=== PATIENT | female | born 1940 | race Caucasian/White ===

== ENCOUNTER → 2016-05-08 | Outpatient (CLI) | payer OTHER ==
[~2016-05-08] MED LIST: AMLO-114 PO; ATV5 PO; CYAN100020; DLCSR240 PO; DTR5 PO; FEBU40TA PO; FURO40TA3 PO; METO1TAB69 PO; NYSTCRE32 TOP; NYSTPOW2 TOP; OXYC-292 PO; OXYC1TAB3 PO; POTA20TA16 PO; TELM80TA PO; TRAM-10 PO; XRL10 PO
[2016-05-08 13:33] LABS: AST/SGOT 9 U/L (15-37); BLOOD UREA NITROGEN 15 mg/dl (7-18); CARBON DIOXIDE 29 mmol/L (21-32); CHLORIDE 105 mmol/L (98-107); GLUCOSE 106 mg/dl (70-99); POTASSIUM 3.5 mmol/L (3.5-5.1); SODIUM 143 mmol/L (136-145)
[2016-05-08 13:38] LABS: ALT/SGPT 12 U/L (12-78); CHOLESTEROL 196 mg/dl (0-200); CHOLESTEROL/HDL RATIO 3.2; HDL CHOLESTEROL 62 mg/dl; LDL CHOLESTEROL CALCULATED 104 mg/dl; TRIGLYCERIDES 151 mg/dl (0-150); VERY LOW DENSITY LIPOPROT CALC 30 mg/dl
== END | disposition home or self-care (01) ==
LOC: C.LABMFLN 09:08
PROVIDERS: ATTEND Family Medicine
DX: I10 Essential (primary) hypertension (principal); M1A.9XX1 Chronic gout, unspecified, with tophus (tophi); M10.9 Gout, unspecified; E78.5 Hyperlipidemia, unspecified

== ENCOUNTER → 2016-07-11 | Outpatient (CLI) | payer OTHER ==
[~2016-07-11] MED LIST changes: +METO100T44 PO; -METO1TAB69 PO
[2016-07-11 18:33] LABS: PARTIAL THROMBOPLASTIN RATIO 1.2; PROTHROMBIN TIME (PATIENT) 10.9 SECONDS (9.0-12.0)
[2016-07-11 18:38] LABS: BASO % 0.3 %; BASO ABS # 0.02 K/uL (0-0.2); COMPLETE YES; EOS % 2.3 %; IG% 0.3 %; LYMPH % 20.7 %; LYMPH ABS # 1.44 K/uL (1.2-3.4); MEAN CELL VOLUME 90.7 fL (80-100); MEAN CORPUSCULAR HEMOGLOBIN 28.5 pg (25-34); MEAN CORPUSCULAR HGB CONC 31.4 g/dl (32-36); MEAN PLATELET VOLUME 9.1 fL (7.4-10.4); MONO % 10.8 %; NEUT % 65.6 %; PLATELET COUNT 285 K/uL (130-400); RED BLOOD COUNT 4.85 M/uL (4.2-5.4); WHITE BLOOD COUNT 6.97 K/uL (4.8-10.8)
[2016-07-11 18:48] LABS: CALCIUM 9.1 mg/dl (8.5-10.1)
[2016-07-11 18:49] LABS: ALT/SGPT 15 U/L (12-78); BLOOD UREA NITROGEN 17 mg/dl (7-18); BUN/CREATININE RATIO 20.8 (10-20); CARBON DIOXIDE 30 mmol/L (21-32); CHLORIDE 107 mmol/L (98-107); CREATININE 0.83 mg/dl (0.60-1.20); GLUCOSE 100 mg/dl (70-99); POTASSIUM 3.7 mmol/L (3.5-5.1); SODIUM 145 mmol/L (136-145)
[2016-07-11 18:59] LABS: ALB/GLOB RATIO 0.9 (0.9-2); ALKALINE PHOSPHATASE 97 U/L (45-117); AST/SGOT 11 U/L (15-37)
== END | disposition home or self-care (01) ==
LOC: C.LABMFLN 16:47
PROVIDERS: ATTEND Family Medicine
DX: C18.9 Malignant neoplasm of colon, unspecified (principal); R53.83 Other fatigue

== ENCOUNTER 2016-08-01 09:27 | Inpatient (IN) | payer OTHER ==
[2016-07-24 12:23] VITALS: BMI 52.0
--- NOTE | 2016-07-24 12:56 | PAT Medication Instructions ---
Service Date July 24, 2016. Current Home Medication List Amlodipine (Norvasc), 10 MG PO QAM Febuxostat (Uloric), 1 TAB PO QAM Furosemide (Lasix), 40 MG PO BID Lorazepam (Ativan *), 0.25-0.5 MG PO HS Metoprolol Succ (Toprol Xl) (Toprol-Xl ), 100 MG PO QAM Nystatin (Mycostatin), 1 APPLN TOP DAILY Oxybutynin Chloride (Ditropan *), 5 MG PO HS Potassium Ext Rel (Klor-Con), 20 MEQ PO BID Telmisartan (Micardis), 80 MG PO QAM Tramadol (Ultram), 50 MG PO Q8H PRN for Pain Medication Instructions For Your Scheduled Surgery - Hold the following medications 24 hours prior to surgery: Nystatin (Mycostatin), 1 APPLN TOP DAILY - Hold the following medications the morning of surgery: Furosemide (Lasix), 40 MG PO BID Telmisartan (Micardis), 80 MG PO QAM Potassium Ext Rel (Klor-Con), 20 MEQ PO BID Febuxostat (Uloric), 1 TAB PO QAM - Take the following medications the morning of surgery with a sip of water OTHERWISE NOTHING TO EAT OR DRINK AFTER MIDNIGHT: Tramadol (Ultram), 50 MG PO Q8H PRN for Pain (may take if needed up to 4 hours prior to surgery) Amlodipine (Norvasc), 10 MG PO QAM Metoprolol Succ (Toprol Xl) (Toprol-Xl ), 100 MG PO QAM - Take the following medications as scheduled the night before surgery: Tramadol (Ultram), 50 MG PO Q8H PRN for Pain Furosemide (Lasix), 40 MG PO BID Oxybutynin Chloride (Ditropan *), 5 MG PO HS Lorazepam (Ativan *), 0.25-0.5 MG PO HS Potassium Ext Rel (Klor-Con), 20 MEQ PO BID If you have any questions please call us at [phone] or [phone] or [phone]
[~2016-08-01] VITALS: Ht 149.9 cm; Wt 117.1 kg
[2016-08-01] VITALS (7 sets, daily range): BP systolic 108–160; BP diastolic 62–74; PULSE 67–91; TEMP 36.4–37; O2SAT 96–98; Ht 149.9 cm; Wt 117.1 kg
[~2016-08-01 09:27] MED LIST changes: -CYAN100020; -DLCSR240 PO; +HEPARIN SOD 5000 UNIT/0.5 ML CARP SQ SCH; +LACTATED RINGER'S 1000ML 1,000 ML IV SCH; -NYSTCRE32 TOP; -OXYC-292 PO; -OXYC1TAB3 PO; -XRL10 PO
[2016-08-01] MEDS ORDERED: EpHEDrine SULFATE INJ 50 MG/ML AMP IV PRN (11:30)
[2016-08-01] MEDS ORDERED: HYDROmorphone INJ 1 MG/ML SYR IV PRN (11:30)
[2016-08-01] MEDS ORDERED: ONDANSETRON INJ 2 MG/ML 2 ML VIAL IV PRN (11:30)
[2016-08-01] MEDS ORDERED: PROMETHAZINE HCL INJ 6.25 MG in SODIUM CHLORIDE 0.9% 50ML 50 ML IV PRN (11:30)
[2016-08-01] MEDS ORDERED: ATROPINE SULFATE 0.1 MG/ML 5ML SYR IV PRN (11:30)
[2016-08-01] MEDS ORDERED: MIDAZOLAM HCL 1 MG/ML 2ML VIAL ONE (11:43)
[2016-08-01] MEDS ORDERED: FENTANYL CITRATE INJ 50 MCG/1 ML 2 ML VIAL ONE ×3 (11:43→13:06)
--- NOTE | 2016-08-01 11:44 | History & Physical Bridge Note ---
H&P Re-Evaluation Bridge Note: I have examined the patient, reviewed the History & Physical and in the interval since the performance of the History & Physical I have noted the following changes of clinical significance: No changes notedfamily at bedside, admit order written
[2016-08-01] MEDS ORDERED: BUPIVACAINE 0.5 % 5 MG/1 ML MPF 30ML VIAL ONE (11:55)
[2016-08-01] MEDS ORDERED: CEFAZOLIN IV 2,000 MG/60 ML D5W IV ONE (11:59)
[2016-08-01] MEDS ORDERED: HYDROmorphone INJ 2 MG/ML SYR/VIAL ONE (12:34)
[2016-08-01] MEDS ORDERED: NEOSTIGMINE METHYLSULFATE 5 MG/5 ML SYR ONE (13:11)
[2016-08-01] MEDS ORDERED: GLYCOPYRROLATE INJ 0.2 MG/ML VIAL ONE (13:11)
[2016-08-01] MEDS ORDERED: EpHEDrine SULFATE INJ 50 MG/ML AMP ONE (13:11)
[2016-08-01] MEDS ORDERED: LIDOCAINE HCL 2% 2 ML VIAL (20MG/ML) ONE (13:11)
[2016-08-01] MEDS ORDERED: PROPOFOL IV EMULSION 10 MG/ML 20 ML VIAL IV ONE (13:11)
[2016-08-01] MEDS ORDERED: DEXAMETHASONE SOD INJ 4 MG/ML VIAL ONE (13:11)
[2016-08-01] MEDS ORDERED: ROCURONIUM BROMID 50MG/5ML SYR ONE (13:11)
[2016-08-01] MEDS ORDERED: CEFOXITIN SOD 1 GM VIAL ONE (13:11)
--- NOTE | 2016-08-01 14:49 | [facility] Post Operative Brief Note ---
Immediate Operative Summary Operative Date August 01, 2016. Pre-Operative Diagnosis adeno ca sigmoid colon Post-Operative Diagnosis same and incrcerated incisional hernias Procedure(s) Performed laparoscopic assisted sigmoid colon resection repair incarcaerated incisional hernia Surgeon Dr. Shane Márquez In Flight Technician Surgeon(s) Rey Hickman PA-C Estimated Blood Loss 150 Findings multiple fenestrated incisional hernia and sigmoid lesion Specimens sigmoid colon and hernia sac Drains 19 ana per stab pelvis and 1/4 inch maegan sub cut
[2016-08-01] MEDS ORDERED: ACETAMINOPHEN IV 100 ML IV PRN (15:00)
[2016-08-01] MEDS ORDERED: LORAZEPAM 2 MG/ML 1 ML VIAL IV PRN (15:00)
[2016-08-01] MEDS ORDERED: NALOXONE HCL 0.4 MG/1 ML VIAL/CARP IV PRN (15:00)
[2016-08-01] MEDS ORDERED: MoRPHine SULFATE 1 MG/ML 50 ML PCA CASS ONE (15:26)
[2016-08-01] MEDS: FENTANYL CITRATE INJ 50 MCG/1 ML 2 ML VIAL IV PRN ×3 (15:45→16:08)
--- NOTE | 2016-08-01 16:17 | Anesthesiology Progress Note ---
Anesthesia Post Op Note Date & Time August 01, 2016 at 16:17 Vital Signs Pain Intensity: 8.0 Vital Signs Past 12 Hours Date Time Temp Pulse Resp B/P Pulse Ox O2 Delivery O2 Flow Rate FiO2 08/01/16 16:00 73 14 118/51 95 Mask 10 08/01/16 15:50 73 18 112/58 90 Mask 10 08/01/16 15:40 75 20 108/53 95 Mask 10 08/01/16 15:30 77 13 114/52 93 Mask 10 08/01/16 15:20 78 22 114/55 90 Mask 10 08/01/16 15:10 80 20 103/54 91 Mask 08/01/16 15:01 36.6 83 16 106/51 92 Mask 08/01/16 09:44 36.7 67 20 137/71 97 Room Air Notes Mental Status: alert / awake / arousable, participated in evaluation Pt Amnestic to Procedure: Yes Nausea / Vomiting: adequately controlled Pain: adequately controlled Airway Patency, RR, SpO2: stable & adequate BP & HR: stable & adequate Hydration State: stable & adequate Anesthetic Complications: no major complications apparent
[2016-08-01] MEDS: MoRPHine SULFATE 1 MG/ML 50 ML PCA CASS IV PRN ×2 (16:57→23:59)
[2016-08-01] MEDS: SODIUM CHLORIDE 0.9% 1000ML 1,000 ML IV SCH (17:16)
[2016-08-01] MEDS: LACTATED RINGER'S 1000ML 1,000 ML IV SCH ×2 (17:17→21:11)
--- NOTE | 2016-08-01 17:28 | OPERATIVE REPORT ---
DATE OF OPERATION: 08/01/2016 SURGEON: Dr. Márquez. BEVEL OPERATOR: Edgar Hickman PA-C. PREOPERATIVE DIAGNOSIS: Sigmoid cancer, adenocarcinoma, biopsy proven tattoo. POSTOPERATIVE DIAGNOSES: Same with multiple incarcerated incisional hernia. PROCEDURE: Laparoscopic-assisted sigmoid colon resection and repair of multiple incisional hernias. SUMMARY: The patient was brought into the operating room theater. De La Cruz catheter was inserted. The abdomen was prepped with Betadine solution and properly draped. Prior to prepping, we looked at the umbilical area. The patient had an incision above the umbilicus linearly and we found still a remnant of a staple from her previous surgery years ago. We at this point then were able to remove that and prepped the abdomen as stated. We made an incision above the incision in the supraumbilical area, sufficient enough to enter the abdomen with a Veress needle, followed by CO2. Point of entry inspected and no injury identified. As we placed a 5 mm trocar, then we were able to visualize the pelvic area where we really could not see much of any significance, there were no adhesions. The patient had a significant amount of fatty tissue. We placed her in Trendelenburg position and then placed a 5 mm right lower quadrant and a 5 mm left flank port and were able to maneuver what we identified as a redundant sigmoid colon and then we could see a tattoo down in the pelvis. This was fairly immobile that we were able to actually bring the tattoo almost up to the pelvic area very easily. At this point, I felt we had enough mobility to probably not need to mobilize the splenic flexure. I elected at this point to go ahead and proceed with converting to an open procedure. There were some adhesions to her left flank from a previous surgery, which we were able to remove and free up. I made an incision above and below the umbilicus, deepened through subcutaneous tissue when we were met with multiple incarcerated hernias in the area. We were able then to free this up, basically uniting all the fenestration in 1 big defect which involved the upper aspect and periumbilical area. We then took our dissection and opened up the linea alba down toward the symphysis pubis. We did not make a real big incision and I think the patient's body habitus was more of a large panniculus going down to her knees but her body cavity was fairly small. At this point, the Bookwalter was placed after we had mobilized and placed her in Trendelenburg position and put some packing, identified the sigmoid colon and freed it up down to the peritoneal reflection, again documenting that we would be able to resect this without much difficulty. We then divided the white line of Toldt just at the takeoff on peritoneal reflection. Taking it up, we identified the ureter. We actually had it out of the way, divided the sigmoid colon to an area that I thought was well away from the tumor with a CHRISTIAN stapler. Then, we took this down all the way to almost the root of the mesentery as far as the inferior mesenteric artery. We then dissected down anterior to Waldeyer's fascia and went down to below the tattooed area for approximately 10 cm or more. Distally, we placed a clamp and another clamp proximally and we resected the distal sigmoid rectal area. The mesentery to that area was then ligated with 2-0 silk. Once this had been performed, we then opened the specimen on the operating room table and grossly we were well away from this polypoid lesion in both ends. At this point, I went back to the operating room theatre and I felt we still had some redundant sigmoid colon that I could probably take more of this mesentery which we did. We took another piece of sigmoid colon and descending colon together with another application of the CHRISTIAN stapler. The patient did have some diverticular disease in the area. There were really a few areas that we were able to just use the CHRISTIAN stapler securely. Once we secured this, we marked the most proximal end of the second resection with a silk suture and the distal end had long sutures. The staple line was oversewn with 3-0 interrupted silk suture. We then brought the 2 ends together with 3-0 silk outer layer, 3-0 chromic inner layer. The anastomosis appeared satisfactory. There was no tension. We established flow and irrigated the area. Placed a 19 Erik drain through a stab wound in left lower quadrant that we used for 5 mm trocar and placed it down the cul-de-sac, attached to skin edges with 2-0 silk suture. We at this point then needed to enlarge this incision more cephalad because it went too close to multiply fenestrated hernias we had dissected out lateral to the rectus on both sides, freeing up the subcutaneous tissue from these areas sufficiently enough that we would be able to close it which we did with interrupted #1 PDS [id number] and also placing retention sutures buried with #2 Vicryl. The repair appeared to be solid. The extra subcutaneous and hernial sac was resected and removed. We then placed a quarter-inch Murray drain in the subcu, closing the subcu with 2-0 Vicryl and neyda for skin edges. Dressing was applied. Procedure was tolerated well by the patient. Estimated blood loss approximately 150 mL. The patient was taken to recovery room in good condition. I attest to the content of the Intraoperative Record and any orders documented therein. Any exceptio ns are noted below.
[2016-08-01] MEDS ORDERED: LORAZEPAM INJ 0.5 MG in SYRINGE 0.75 ML IV PRN (17:30)
[2016-08-01] MEDS: CEFOXITIN IV 2,000 MG in DEXTROSE 5% 50ML 50 ML IV SCH (19:39)
[2016-08-01] MEDS: OXYBUTYNIN CHLORIDE 5 MG TAB PO SCH (21:05)
[2016-08-01] MEDS: HEPARIN SOD 5000 UNIT/0.5 ML CARP SQ SCH (21:06)
[2016-08-02 00:01] VITALS: BP 150/72; PULSE 90
[2016-08-02] MEDS: ONDANSETRON INJ 2 MG/ML 2 ML VIAL IV PRN ×3 (00:15→18:28)
[2016-08-02] MEDS: CEFOXITIN IV 2,000 MG in DEXTROSE 5% 50ML 50 ML IV SCH ×2 (02:02→07:38)
[2016-08-02 03:12] VITALS: BP 159/76; PULSE 90; TEMP 37.1; O2SAT 97
[2016-08-02] MEDS: LACTATED RINGER'S 1000ML 1,000 ML IV SCH ×3 (04:25→17:25)
[2016-08-02] MEDS: HEPARIN SOD 5000 UNIT/0.5 ML CARP SQ SCH ×3 (05:02→20:27)
[2016-08-02] MEDS: MoRPHine SULFATE 1 MG/ML 50 ML PCA CASS IV PRN ×3 (07:06→22:51)
--- NOTE | 2016-08-02 07:12 | Surgery Progress Note ---
Surgery Progress Note Date of Service August 02, 2016. Subjective Post OP Day: 1 + complaints (pain when getting up), + feeling well, + nausea (last evening), + pain controlled, + using SANDBLAST OPERATOR, No SOB Objective Vital Signs: Date Time Temp Pulse Resp B/P Pulse Ox O2 Delivery O2 Flow Rate FiO2 08/02/16 03:12 37.1 90 16 159/76 97 Nasal Cannula 4.0 08/02/16 00:01 90 150/72 08/01/16 22:48 36.7 91 14 160/74 96 Nasal Cannula 4.0 08/01/16 20:54 37.0 86 16 137/69 98 Nasal Cannula 4.0 08/01/16 19:30 Nasal Cannula 4.0 08/01/16 19:10 36.7 75 16 136/68 98 Nasal Cannula 4.0 08/01/16 17:59 36.5 75 16 115/64 98 Nasal Cannula 4.0 08/01/16 17:24 36.5 77 16 125/68 97 Nasal Cannula 08/01/16 17:00 36.4 76 16 108/62 98 Nasal Cannula 4.0 08/01/16 17:00 98 Nasal Cannula 4.0 08/01/16 17:00 98 Nasal Cannula 4.0 08/01/16 16:40 36.2 74 14 108/64 97 Nasal Cannula 4 08/01/16 16:30 73 16 106/64 97 Nasal Cannula 4 08/01/16 16:20 72 16 117/61 95 Nasal Cannula 4 08/01/16 16:10 36.2 73 16 112/58 95 Nasal Cannula 4 08/01/16 16:00 73 14 118/51 95 Mask 10 08/01/16 15:50 73 18 112/58 90 Mask 10 08/01/16 15:40 75 20 108/53 95 Mask 10 08/01/16 15:30 77 13 114/52 93 Mask 10 08/01/16 15:20 78 22 114/55 90 Mask 10 08/01/16 15:10 80 20 103/54 91 Mask 10 08/01/16 15:01 36.6 83 16 106/51 92 Mask 10 08/01/16 09:44 36.7 67 20 137/71 97 Room Air Physical Exam: Erik drainage (10 cc), urine output (400 cc overnight) Abdomen: soft Incision(s): clean, dry (dressing) Laboratory Results: Results Past 24 Hours Test 08/02/16 04:44 Range/Units Microbiology Results 08/01/16 Urine Culture, Received Pending Assessment & Plan s/p sigmoid colectomy UOP good labs pending BP borderline, probably restart Norvasc continue jaimes for this morning wants to stay on ice/sips for now seen with Dr. Márquez
[2016-08-02 07:40] VITALS: BP 162/65; PULSE 75; TEMP 37.3; O2SAT 98
--- NOTE | 2016-08-02 08:00 | Anesthesiology Progress Note ---
Anesthesia Post Op Note Date & Time August 02, 2016 at 08:00 Vital Signs Pain Intensity: 0.0 Vital Signs Past 12 Hours Date Time Temp Pulse Resp B/P Pulse Ox O2 Delivery O2 Flow Rate FiO2 08/02/16 03:12 37.1 90 16 159/76 97 Nasal Cannula 4.0 08/02/16 00:01 90 150/72 08/01/16 22:48 36.7 91 14 160/74 96 Nasal Cannula 4.0 08/01/16 20:54 37.0 86 16 137/69 98 Nasal Cannula 4.0 Notes Mental Status: alert / awake / arousable, participated in evaluation Anesthetic Complications: no major complications apparent
[2016-08-02 08:07] LABS: BASO % 0.1 %; BASO ABS # 0.01 K/uL (0-0.2); COMPLETE YES; HEMATOCRIT 38.9 % (37-47); IG% 0.2 %; LYMPH % 4.2 %; LYMPH ABS # 0.53 K/uL (1.2-3.4); MEAN CELL VOLUME 88.2 fL (80-100); MEAN CORPUSCULAR HEMOGLOBIN 29.5 pg (25-34); MEAN CORPUSCULAR HGB CONC 33.4 g/dl (32-36); MEAN PLATELET VOLUME 8.8 fL (7.4-10.4); MONO % 5.7 %; NEUT % 89.8 %; PLATELET COUNT 246 K/uL (130-400); RED BLOOD COUNT 4.41 M/uL (4.2-5.4)
[2016-08-02 08:17] LABS: PARTIAL THROMBOPLASTIN RATIO 1.2
[2016-08-02] MEDS: AMLODIPINE BESYLATE 5 MG TAB PO SCH (09:03)
[2016-08-02] MEDS: FEBUXOSTAT 40 MG TAB PO SCH (09:04)
[2016-08-02] MEDS: NYSTATIN POWDER 15GM BTL EXT SCH (09:04)
[2016-08-02] MEDS: METOPROLOL SUCC 50MG EXT REL TAB PO SCH (09:04)
[2016-08-02 09:07] LABS: BUN/CREATININE RATIO 13.9 (10-20); CREATININE 0.59 mg/dl (0.60-1.20)
[2016-08-02 10:00] LABS: CALCIUM 8.9 mg/dl (8.5-10.1)
[2016-08-02] MEDS: SODIUM CHLORIDE 0.9% 1000ML 1,000 ML IV SCH (10:40)
[2016-08-02 10:58] VITALS: BP 168/79; PULSE 87; TEMP 37.2; O2SAT 97
[2016-08-02] MEDS: PANTOprazole INJ 40 MG in SYRINGE 0 ML IV SCH (11:07)
[2016-08-02 13:35] VITALS: BP 160/68; PULSE 82
[2016-08-02] MEDS: TELMISARTAN 40 MG TAB PO SCH (13:40)
[2016-08-02 14:58] VITALS: BP 154/62; PULSE 85; TEMP 37; O2SAT 96
[2016-08-02] MEDS ORDERED: NURSING VERBAL MED ORDER ONE (19:45)
[2016-08-02] MEDS: PROMETHAZINE HCL INJ 25 MG in SODIUM CHLORIDE 0.9% 50ML 50 ML IV PRN (20:26)
[2016-08-02] MEDS: OXYBUTYNIN CHLORIDE 5 MG TAB PO SCH (20:50)
[2016-08-03] MEDS: LACTATED RINGER'S 1000ML 1,000 ML IV SCH ×4 (00:05→20:09)
[2016-08-03 00:49] VITALS: BP 169/73; PULSE 91; TEMP 37.5; O2SAT 93
[2016-08-03] MEDS: ONDANSETRON INJ 2 MG/ML 2 ML VIAL IV PRN ×2 (03:45→09:10)
[2016-08-03 03:48] VITALS: BP 154/69; PULSE 84; TEMP 37.3; O2SAT 93
[2016-08-03] MEDS: HEPARIN SOD 5000 UNIT/0.5 ML CARP SQ SCH ×3 (04:59→20:13)
[2016-08-03 06:45] LABS: COMPLETE YES; HEMATOCRIT 38.2 % (37-47); IG% 0.3 %; LYMPH % 7.9 %; LYMPH ABS # 0.72 K/uL (1.2-3.4); MEAN CELL VOLUME 89.3 fL (80-100); MEAN CORPUSCULAR HEMOGLOBIN 29.4 pg (25-34); MEAN PLATELET VOLUME 9.1 fL (7.4-10.4); MONO % 7.5 %; NEUT % 84.3 %; PLATELET COUNT 251 K/uL (130-400); RED BLOOD COUNT 4.28 M/uL (4.2-5.4); WHITE BLOOD COUNT 9.11 K/uL (4.8-10.8)
[2016-08-03 06:48] LABS: PARTIAL THROMBOPLASTIN RATIO 1.2
[2016-08-03 06:50] VITALS: BP 163/73; PULSE 83; TEMP 37.1; O2SAT 96
[2016-08-03 07:15] LABS: BUN/CREATININE RATIO 13.3 (10-20); CALCIUM 8.7 mg/dl (8.5-10.1); CREATININE 0.47 mg/dl (0.60-1.20); POTASSIUM 3.6 mmol/L (3.5-5.1)
[2016-08-03] MEDS: FEBUXOSTAT 40 MG TAB PO SCH (09:13)
[2016-08-03] MEDS: AMLODIPINE BESYLATE 5 MG TAB PO SCH (09:13)
[2016-08-03] MEDS: METOPROLOL SUCC 50MG EXT REL TAB PO SCH (09:13)
[2016-08-03] MEDS: NYSTATIN POWDER 15GM BTL EXT SCH (09:14)
[2016-08-03] MEDS: TELMISARTAN 40 MG TAB PO SCH (09:14)
[2016-08-03] MEDS: PROMETHAZINE HCL INJ 25 MG in SODIUM CHLORIDE 0.9% 50ML 50 ML IV PRN (10:42)
--- NOTE | 2016-08-03 11:08 | Surgery Progress Note ---
Surgery Progress Note Date of Service August 03, 2016. Subjective Post OP Day: 2 doing ok...better today than yesterday. nausea improved with phenergan but still present. pain is not bad/minimal morphine use Objective Vital Signs: Date Time Temp Pulse Resp B/P Pulse Ox O2 Delivery O2 Flow Rate FiO2 08/03/16 08:00 Nasal Cannula 1.0 08/03/16 06:50 37.1 83 17 163/73 96 Nasal Cannula 1.0 08/03/16 03:48 37.3 84 16 154/69 93 Nasal Cannula 1.0 08/03/16 00:49 37.5 91 18 169/73 93 2.0 08/02/16 23:30 Nasal Cannula 1.0 08/02/16 15:25 Nasal Cannula 1.0 08/02/16 14:58 37.0 85 16 154/62 96 Nasal Cannula 1.0 08/02/16 13:35 82 160/68 Physical Exam: XAVI drainage (serous) General Appearance: no apparent distress Head: atraumatic Abdomen: non distended, soft Incision(s): clean, dry, intact Laboratory Results: Results Past 24 Hours Test 08/03/16 05:42 Range/Units White Blood Count 9.11 4.8-10.8 K/uL Red Blood Count 4.28 4.2-5.4 M/uL Hemoglobin 12.6 12.0-16.0 g/dL Hematocrit 38.2 37-47 % Mean Corpuscular Volume 89.3 80-100 fL Mean Corpuscular Hemoglobin 29.4 25-34 pg Mean Corpuscular Hemoglobin Concent 33.0 32-36 g/dl Platelet Count 251 130-400 K/uL Mean Platelet Volume 9.1 7.4-10.4 fL Neutrophils (%) (Auto) 84.3 % Lymphocytes (%) (Auto) 7.9 % Monocytes (%) (Auto) 7.5 % Eosinophils (%) (Auto) 0.0 % Basophils (%) (Auto) 0.0 % Neutrophils # (Auto) 7.68 1.4-6.5 K/uL Lymphocytes # (Auto) 0.72 1.2-3.4 K/uL Monocytes # (Auto) 0.68 0.11-0.59 K/uL Eosinophils # (Auto) 0.00 0-0.5 K/uL Basophils # (Auto) 0.00 0-0.2 K/uL RDW Standard Deviation 44.6 36.4-46.3 fL RDW Coefficient of Variation 13.5 11.5-14.5 % Immature Granulocyte % (Auto) 0.3 % Immature Granulocyte # (Auto) 0.03 0.00-0.02 K/uL Activated Partial Thromboplast Time 32.3 21.0-31.0 SECONDS Partial Thromboplastin Ratio 1.2 Sodium Level 140 136-145 mmol/L Potassium Level 3.6 3.5-5.1 mmol/L Chloride Level 103 98-107 mmol/L Carbon Dioxide Level 31 21-32 mmol/L Anion Gap 6.0 3-11 mmol/L Blood Urea Nitrogen 6 7-18 mg/dl Creatinine 0.47 0.60-1.20 mg/dl Est Creatinine Clear Calc Drug Dose 113.3 ml/min Estimated GFR () 109.7 Estimated GFR (Non- 94.6 BUN/Creatinine Ratio 13.3 10-20 Random Glucose 96 70-99 mg/dl Calcium Level 8.7 8.5-10.1 mg/dl Assessment & Plan 07/04/16 clinically improving will d/c morphine- ? contributing to nausea cont zofran/phenergan prn increase activity today keep jaimes one more day- plan d/c it tomorrow. wbc improved today/down to 9000
[2016-08-03] MEDS: PANTOprazole INJ 40 MG in SYRINGE 0 ML IV SCH (13:28)
[2016-08-03 15:02] VITALS: BP 160/74; PULSE 77; TEMP 37.2; O2SAT 95
[2016-08-03] MEDS: OXYBUTYNIN CHLORIDE 5 MG TAB PO SCH (20:10)
[2016-08-03 22:55] VITALS: BP 158/73; PULSE 73; TEMP 37.3; O2SAT 96
[2016-08-04] MEDS: LACTATED RINGER'S 1000ML 1,000 ML IV SCH ×4 (03:07→22:08)
[2016-08-04] MEDS: HEPARIN SOD 5000 UNIT/0.5 ML CARP SQ SCH ×3 (05:16→20:47)
[2016-08-04 06:03] LABS: BASO % 0.1 %; BASO ABS # 0.01 K/uL (0-0.2); COMPLETE YES; EOS % 0.5 %; HEMATOCRIT 40.5 % (37-47); IG% 0.3 %; LYMPH % 10.1 %; MEAN CELL VOLUME 88.6 fL (80-100); MEAN CORPUSCULAR HEMOGLOBIN 29.5 pg (25-34); MEAN CORPUSCULAR HGB CONC 33.3 g/dl (32-36); MEAN PLATELET VOLUME 9.1 fL (7.4-10.4); MONO % 9.4 %; NEUT % 79.6 %; PLATELET COUNT 260 K/uL (130-400); RED BLOOD COUNT 4.57 M/uL (4.2-5.4); WHITE BLOOD COUNT 7.89 K/uL (4.8-10.8)
[2016-08-04 06:12] LABS: PARTIAL THROMBOPLASTIN RATIO 1.2
[2016-08-04 06:43] LABS: BUN/CREATININE RATIO 16.6 (10-20); CALCIUM 8.8 mg/dl (8.5-10.1); CREATININE 0.43 mg/dl (0.60-1.20); POTASSIUM 3.6 mmol/L (3.5-5.1)
[2016-08-04 07:03] VITALS: BP 160/74; PULSE 72; TEMP 36.9; O2SAT 95
[2016-08-04 07:15] VITALS: O2SAT 95
[2016-08-04] MEDS: NYSTATIN POWDER 15GM BTL EXT SCH (07:25)
[2016-08-04] MEDS: AMLODIPINE BESYLATE 5 MG TAB PO SCH (07:25)
[2016-08-04] MEDS: TELMISARTAN 40 MG TAB PO SCH (07:26)
[2016-08-04] MEDS: METOPROLOL SUCC 50MG EXT REL TAB PO SCH (07:26)
[2016-08-04] MEDS: FEBUXOSTAT 40 MG TAB PO SCH (07:26)
[2016-08-04] MEDS: PANTOprazole INJ 40 MG in SYRINGE 0 ML IV SCH (10:32)
[2016-08-04] MEDS: ONDANSETRON INJ 2 MG/ML 2 ML VIAL IV PRN (15:41)
--- NOTE | 2016-08-04 15:50 | Surgery Progress Note ---
Surgery Progress Note Date of Service August 04, 2016. Subjective Post OP Day: 3 + feeling well pt with 2 bms. still having nausea but no emesis and nausea is slowly improving. pain control adequate Objective Vital Signs: Date Time Temp Pulse Resp B/P Pulse Ox O2 Delivery O2 Flow Rate FiO2 08/04/16 07:15 95 Nasal Cannula 1.0 08/04/16 07:03 36.9 72 18 160/74 95 Nasal Cannula 2.0 08/03/16 23:30 Nasal Cannula 1.0 08/03/16 22:55 37.3 73 14 158/73 96 Nasal Cannula 1.5 Physical Exam: XAVI drainage (serous) General Appearance: no apparent distress Abdomen: non distended, soft Incision(s): clean, dry, intact, no erythema Laboratory Results: Results Past 24 Hours Test 08/04/16 05:20 Range/Units White Blood Count 7.89 4.8-10.8 K/uL Red Blood Count 4.57 4.2-5.4 M/uL Hemoglobin 13.5 12.0-16.0 g/dL Hematocrit 40.5 37-47 % Mean Corpuscular Volume 88.6 80-100 fL Mean Corpuscular Hemoglobin 29.5 25-34 pg Mean Corpuscular Hemoglobin Concent 33.3 32-36 g/dl Platelet Count 260 130-400 K/uL Mean Platelet Volume 9.1 7.4-10.4 fL Neutrophils (%) (Auto) 79.6 % Lymphocytes (%) (Auto) 10.1 % Monocytes (%) (Auto) 9.4 % Eosinophils (%) (Auto) 0.5 % Basophils (%) (Auto) 0.1 % Neutrophils # (Auto) 6.28 1.4-6.5 K/uL Lymphocytes # (Auto) 0.80 1.2-3.4 K/uL Monocytes # (Auto) 0.74 0.11-0.59 K/uL Eosinophils # (Auto) 0.04 0-0.5 K/uL Basophils # (Auto) 0.01 0-0.2 K/uL RDW Standard Deviation 43.6 36.4-46.3 fL RDW Coefficient of Variation 13.3 11.5-14.5 % Immature Granulocyte % (Auto) 0.3 % Immature Granulocyte # (Auto) 0.02 0.00-0.02 K/uL Activated Partial Thromboplast Time 30.1 21.0-31.0 SECONDS Partial Thromboplastin Ratio 1.2 Sodium Level 141 136-145 mmol/L Potassium Level 3.6 3.5-5.1 mmol/L Chloride Level 104 98-107 mmol/L Carbon Dioxide Level 32 21-32 mmol/L Anion Gap 5.0 3-11 mmol/L Blood Urea Nitrogen 7 7-18 mg/dl Creatinine 0.43 0.60-1.20 mg/dl Est Creatinine Clear Calc Drug Dose 123.9 ml/min Estimated GFR () 112.9 Estimated GFR (Non- 97.4 BUN/Creatinine Ratio 16.6 10-20 Random Glucose 86 70-99 mg/dl Calcium Level 8.8 8.5-10.1 mg/dl Assessment & Plan 08/04/16 clinically improving wbc decreased to 7000 bowel functioning. will start clears...nausea present but improving increase activity d/c jaimes 08/03/16 clinically improving will d/c morphine- ? contributing to nausea cont zofran/phenergan prn increase activity today keep jaimes one more day- plan d/c it tomorrow. wbc improved today/down to 9000 07/04/16 clinically improving will d/c morphine- ? contributing to nausea cont zofran/phenergan prn increase activity today keep jaimes one more day- plan d/c it tomorrow. wbc improved today/down to 9000
[2016-08-04 16:01] VITALS: BP 166/77; PULSE 69; TEMP 37; O2SAT 95
[2016-08-04] MEDS: OXYBUTYNIN CHLORIDE 5 MG TAB PO SCH (20:46)
[2016-08-04 22:53] VITALS: BP 159/74; PULSE 67; TEMP 37; O2SAT 100
[2016-08-05] MEDS: HEPARIN SOD 5000 UNIT/0.5 ML CARP SQ SCH ×3 (05:15→20:43)
[2016-08-05] MEDS: LACTATED RINGER'S 1000ML 1,000 ML IV SCH ×2 (05:15→12:50)
[2016-08-05 06:55] LABS: BUN/CREATININE RATIO 14.9 (10-20); CALCIUM 8.2 mg/dl (8.5-10.1); CREATININE 0.5 mg/dl (0.60-1.20); POTASSIUM 3.3 mmol/L (3.5-5.1)
[2016-08-05 07:14] VITALS: BP 152/92; PULSE 84; TEMP 36.9; O2SAT 98
--- NOTE | 2016-08-05 07:54 | Surgery Progress Note ---
Surgery Progress Note Date of Service August 05, 2016. Subjective Post OP Day: 4 + bowel movement, + diet (clears), + flatus, + nausea, + pain controlled Objective Vital Signs: Date Time Temp Pulse Resp B/P Pulse Ox O2 Delivery O2 Flow Rate FiO2 08/05/16 07:14 36.9 84 19 152/92 98 Room Air 08/04/16 23:25 Nasal Cannula 1.0 08/04/16 22:53 37.0 67 14 159/74 100 Nasal Cannula 1.5 08/04/16 16:01 37.0 69 18 166/77 95 Nasal Cannula 1.0 08/04/16 15:35 Nasal Cannula 1.0 Physical Exam: Erik drainage (65 cc), urine output (1450) Abdomen: soft Laboratory Results: Results Past 24 Hours Test 08/05/16 05:40 Range/Units Sodium Level 142 136-145 mmol/L Potassium Level 3.3 3.5-5.1 mmol/L Chloride Level 105 98-107 mmol/L Carbon Dioxide Level 30 21-32 mmol/L Anion Gap 7.0 3-11 mmol/L Blood Urea Nitrogen 7 7-18 mg/dl Creatinine 0.50 0.60-1.20 mg/dl Est Creatinine Clear Calc Drug Dose 106.5 ml/min Estimated GFR () 107.4 Estimated GFR (Non- 92.7 BUN/Creatinine Ratio 14.9 10-20 Random Glucose 86 70-99 mg/dl Calcium Level 8.2 8.5-10.1 mg/dl Microbiology Results 08/05/16 C.difficile Toxin B Gene (PCR) - Final, Complete No C. difficile toxin B gene detected Assessment & Plan s/p sigmoid colectomy bowels moving but will keep on clears and advance when nausea resolves will remove maegan drain today increase activity seen with Dr. Márquez
[2016-08-05 08:19] VITALS: BP 166/74; PULSE 68
[2016-08-05] MEDS: TELMISARTAN 40 MG TAB PO SCH (08:21)
[2016-08-05] MEDS: METOPROLOL SUCC 50MG EXT REL TAB PO SCH (08:22)
[2016-08-05] MEDS: AMLODIPINE BESYLATE 5 MG TAB PO SCH (08:22)
[2016-08-05] MEDS: FEBUXOSTAT 40 MG TAB PO SCH (08:23)
[2016-08-05] MEDS: NYSTATIN POWDER 15GM BTL EXT SCH (08:24)
[2016-08-05] MEDS: PANTOprazole INJ 40 MG in SYRINGE 0 ML IV SCH (11:18)
[2016-08-05 11:19] VITALS: BP 151/72
[2016-08-05 14:54] VITALS: BP 149/83; PULSE 63; TEMP 37.1; O2SAT 96
[2016-08-05] MEDS: NSS + 20MEQ KCL 1000ML 1,000 ML IV SCH (16:27)
[2016-08-05] MEDS ORDERED: OXYCODONE/ACETAMINOPHEN 5-325 TAB PO PRN (17:15)
[2016-08-05] MEDS: OXYBUTYNIN CHLORIDE 5 MG TAB PO SCH (20:40)
[2016-08-05] MEDS: POTASSIUM CHLORIDE 20 MEQ TABCR PO SCH (20:40)
[2016-08-05 22:52] VITALS: BP 153/74; PULSE 69; TEMP 37; O2SAT 97
[2016-08-06] MEDS: NSS + 20MEQ KCL 1000ML 1,000 ML IV SCH (04:24)
[2016-08-06] MEDS: HEPARIN SOD 5000 UNIT/0.5 ML CARP SQ SCH (05:01)
--- NOTE | 2016-08-06 07:05 | SURGERY PROGRESS NOTE ---
DATE: 08/06/2016 Doris is doing very well. She is 5th postoperative day status post sigmoid colon resection for a carcinoma. The path is still pending. She is comfortable. She is having no pain. She is tolerating a diet. She is moving her bowels. The incision is free of any drainage. The [place] drain was removed yesterday. The Erik drain is still in. It drained about 25 yesterday with just serous fluid. Her last vitals showed a temperature of 37, pulse 69, respirations 16, blood pressure 153/74, O2 sats 97 on 1 liter. Her I\T\O she is voiding fine. She is mobilizing fluids. At this point, she is tolerating a diet. We will probably discharge her home today. Instructions to return to our office on Friday and at that time we will take the drain out and may remove a few neyda. Instructions will be given regarding wound care, her activity, diet. I told her she can shower. She should not drive for at least a week, and do not lift anything heavier than 10 pounds.
--- NOTE | 2016-08-06 07:07 | Discharge Instructions ---
Discharge Instructions Date of Service August 06, 2016. Admission Reason for Admission: Sigmoid Colon carcinoma Discharge Discharge Diagnosis / Problem: s/p sigmoid colon resection Discharge Goals Goal(s): Therapeutic intervention Activity Recommendations Activity Limitations: as noted below Lifting Limitations: no more than 10 pounds Exercise/Sports Limitations: as tolerated May Resume Sexual Activity: when tolerated Shower/Bathe: no limitations Driving or Machine Use: for one week . Instructions / Follow-Up Instructions / Follow-Up return office friday call [phone] for any problems and schedule f/u appointment Current Hospital Diet Patient's current hospital diet: Full Liquid Diet Discharge Diet Recommended Diet: Low Fiber Diet Procedures Procedures Performed: laparoscopic assisted sigmoid colon resection repair incarcaerated incisional hernia Pending Studies Studies pending at discharge: no Medical Emergencies . Who to Call and When: Medical Emergencies: If at any time you feel your situation is an emergency, please call [phone] immediately. . Non-Emergent Contact Non-Emergency issues call your: Primary Care Provider Call Non-Emergent contact if: temperature is above 101, your pain is not controlled, wound has increased drainage, wound has increased redness any problems call [phone] . "Provider Documentation" section prepared by Shane Márquez. . VTE Core Measure Inpt VTE Proph given/why not?: Unfractionated heparin SQ
[2016-08-06 07:48] VITALS: BP 134/80; PULSE 67; TEMP 37.3; O2SAT 97
[2016-08-06 08:17] VITALS: O2SAT 97
[2016-08-06] MEDS: FEBUXOSTAT 40 MG TAB PO SCH (09:12)
[2016-08-06] MEDS: POTASSIUM CHLORIDE 20 MEQ TABCR PO SCH (09:13)
[2016-08-06 09:15] VITALS: BP 149/71; PULSE 71
[2016-08-06] MEDS: TELMISARTAN 40 MG TAB PO SCH (09:16)
[2016-08-06] MEDS: METOPROLOL SUCC 50MG EXT REL TAB PO SCH (09:17)
[2016-08-06] MEDS: AMLODIPINE BESYLATE 5 MG TAB PO SCH (09:17)
[2016-08-06] MEDS: NYSTATIN POWDER 15GM BTL EXT SCH (09:18)
--- NOTE | 2016-08-06 09:55 | DISCHARGE SUMMARY ---
PRIMARY DISCHARGE DIAGNOSES: 1. Adenocarcinoma of the sigmoid colon. 2. Multiple incarcerated incisional hernias. 3. Obesity. SECONDARY DISCHARGE DIAGNOSES: 1. Hypertension. 2. Gout. PROCEDURES PERFORMED: Laparoscopic assisted sigmoid colon resection with repair of multiple incisional hernias. HOSPITAL COURSE: The patient is a 76-year-old female with biopsy-proven adenocarcinoma of sigmoid colon, admitted through same day and taken to the operating room for laparoscopic assisted sigmoid resection. The procedure was well tolerated. She was transferred to the surgical floor. She was given a dose of subQ heparin preoperatively and this was continued postoperatively as well. She was given perioperative Mefoxin as well as Protonix. A morphine ROUNDING AND BACKING MACHINE OPERATOR was used initially. She did have some nausea over the first few days. There was question whether ROUNDING AND BACKING MACHINE OPERATOR was contributing for that and was discontinued on day 3. By that time, she was moving her bowels, but continued to have some nausea. She was able to tolerate increasing amounts of clear liquids over the next day. Her Toprol had been continued postoperatively and her Norvasc and Micardis were added back as her volume status equilibrated. [place] drain was removed from the incision on postoperative day 4. She was able to tolerate full liquids at that time. She had multiple bowel movements. She was slowly increasing activity. She had a Erik drain, which was draining mostly serous and about 175 mL in the past 24 hours. On postoperative day 5, she was tolerating oral analgesics. Her diet was advanced. She was stable for discharge home with the drain. Her abdomen was soft. Incision was healing well. DISCHARGE INSTRUCTIONS: Discharge home. Follow up in the office in 3 days for removal of the Erik drain. She may shower with the drain. DISCHARGE MEDICATIONS: Resume home medications including Ultram 50 mg every 8 hours as needed, Norvasc 10 mg daily, Toprol-XL 100 mg daily, Uloric 40 mg daily, Lasix 40 mg daily, Ativan 0.5 mg at bedtime as needed, Nystatin powder as needed, Ditropan 5 mg at bedtime, potassium chloride 20 mEq p.o. b.i.d. and Micardis 80 mg daily. PATHOLOGY: Pending at the time of discharge.
[2016-08-06] MEDS: PANTOprazole INJ 40 MG in SYRINGE 0 ML IV SCH (11:19)
[2016-08-06 11:29] VITALS: BP 149/71; PULSE 71; TEMP 37.3; O2SAT 97
== END 2016-08-06 13:52 | disposition home or self-care (01) | DRG 330 ==
LOC: ENRESERVTM → ENRESERVDT → C.ACU 09:27 → C.MSW 10:17
PROVIDERS: ADMIT Surgery; ATTEND Surgery
PROC: 0JN80ZZ Release Abdomen Subcutaneous Tissue and Fascia, Open Approach (ICD-10-PCS; principal; 2016-08-01 11:15)
PROC: 0DBN0ZZ Excision of Sigmoid Colon, Open Approach (ICD-10-PCS; principal; 2016-08-01 11:15)
PROC: 0DJW4ZZ Inspection of Peritoneum, Percutaneous Endoscopic Approach (ICD-10-PCS; principal; 2016-08-01 11:15)
DX: C18.7 Malignant neoplasm of sigmoid colon (principal); K43.0 Incisional hernia with obstruction, without gangrene; K57.30 Diverticulosis of large intestine without perforation or abscess without bleeding; Z96.659 Presence of unspecified artificial knee joint; Z96.649 Presence of unspecified artificial hip joint; I10 Essential (primary) hypertension; M15.9 Polyosteoarthritis, unspecified; E78.5 Hyperlipidemia, unspecified; N31.8 Other neuromuscular dysfunction of bladder; M1A.9XX0 Chronic gout, unspecified, without tophus (tophi); Z53.31 Laparoscopic surgical procedure converted to open procedure

== ENCOUNTER → 2016-08-13 | Outpatient (CLI) | payer OTHER ==
[~2016-08-13] MED LIST changes: -HEPARIN SOD 5000 UNIT/0.5 ML CARP SQ SCH; -LACTATED RINGER'S 1000ML 1,000 ML IV SCH
[2016-08-13 18:03] LABS: BASO % 0.3 %; BASO ABS # 0.03 K/uL (0-0.2); COMPLETE YES; EOS % 1.9 %; HEMATOCRIT 41.9 % (37-47); IG% 0.3 %; LYMPH % 11.2 %; LYMPH ABS # 1.03 K/uL (1.2-3.4); MEAN CELL VOLUME 89.1 fL (80-100); MEAN CORPUSCULAR HEMOGLOBIN 28.5 pg (25-34); MEAN PLATELET VOLUME 8.7 fL (7.4-10.4); MONO % 12.6 %; NEUT % 73.7 %; PLATELET COUNT 456 K/uL (130-400); WHITE BLOOD COUNT 9.16 K/uL (4.8-10.8)
[2016-08-13 18:18] LABS: URINE APPEARANCE CLOUDY (CLEAR); URINE BILIRUBIN NEG (NEG); URINE COLOR DK YELLOW; URINE EPITHELIAL CELL AUTO >30 /lpf (0-5); URINE NITRITE NEG (NEG); URINE SPECIFIC GRAVITY 1.017 (1.000-1.030); UROBILINOGEN POS (NEG)
[2016-08-13 18:19] LABS: CALCIUM 8.9 mg/dl (8.5-10.1)
[2016-08-13 18:22] LABS: BLOOD UREA NITROGEN 7 mg/dl (7-18); BUN/CREATININE RATIO 8.3 (10-20); CARBON DIOXIDE 29 mmol/L (21-32); CHLORIDE 104 mmol/L (98-107); CREATININE 0.81 mg/dl (0.60-1.20); GLUCOSE 100 mg/dl (70-99); POTASSIUM 4.5 mmol/L (3.5-5.1); SODIUM 139 mmol/L (136-145)
[2016-08-13 18:37] LABS: MANUAL MICROSCOPIC REQUIRED? NO; REVIEW REQ? YES
== END | disposition home or self-care (01) ==
LOC: C.LABMFLN 14:09
PROVIDERS: ATTEND Family Medicine
DX: C18.9 Malignant neoplasm of colon, unspecified (principal); R60.0 Localized edema; R10.31 Right lower quadrant pain

== ENCOUNTER → 2016-12-23 | Outpatient (CLI) | payer OTHER ==
[~2016-12-23] MED LIST changes: -METO100T44 PO; +METO1TAB69 PO
[2016-12-23 13:20] LABS: BASO % 0.4 %; BASO ABS # 0.02 K/uL (0-0.2); COMPLETE YES; HEMATOCRIT 42.2 % (37-47); IG% 0.2 %; LYMPH % 26.6 %; LYMPH ABS # 1.44 K/uL (1.2-3.4); MEAN CELL VOLUME 88.1 fL (80-100); MEAN CORPUSCULAR HEMOGLOBIN 28.6 pg (25-34); MEAN CORPUSCULAR HGB CONC 32.5 g/dl (32-36); MEAN PLATELET VOLUME 8.7 fL (7.4-10.4); MONO % 10.1 %; NEUT % 59.7 %; PLATELET COUNT 320 K/uL (130-400); RED BLOOD COUNT 4.79 M/uL (4.2-5.4); WHITE BLOOD COUNT 5.42 K/uL (4.8-10.8)
[2016-12-23 13:41] LABS: ALT/SGPT 13 U/L (12-78); BLOOD UREA NITROGEN 16 mg/dl (7-18); BUN/CREATININE RATIO 21.2 (10-20); CALCIUM 9.1 mg/dl (8.5-10.1); CARBON DIOXIDE 27 mmol/L (21-32); CHLORIDE 105 mmol/L (98-107); CHOLESTEROL 183 mg/dl (0-200); CREATININE 0.76 mg/dl (0.60-1.20); GLUCOSE 104 mg/dl (70-99); POTASSIUM 3.8 mmol/L (3.5-5.1); SODIUM 141 mmol/L (136-145); TRIGLYCERIDES 141 mg/dl (0-150); URIC ACID 5.2 mg/dl (2.6-7.2); VERY LOW DENSITY LIPOPROT CALC 28 mg/dl
[2016-12-23 13:44] LABS: ALB/GLOB RATIO 0.9 (0.9-2); ALKALINE PHOSPHATASE 92 U/L (45-117); AST/SGOT 13 U/L (15-37); CHOLESTEROL/HDL RATIO 3.2; HDL CHOLESTEROL 57 mg/dl; LDL CHOLESTEROL CALCULATED 98 mg/dl
== END | disposition home or self-care (01) ==
LOC: C.LABMFLN 09:25
PROVIDERS: ATTEND Family Medicine
DX: I10 Essential (primary) hypertension (principal); M1A.9XX1 Chronic gout, unspecified, with tophus (tophi); E78.5 Hyperlipidemia, unspecified

== ENCOUNTER → 2017-07-15 | Outpatient (CLI) | payer OTHER ==
[~2017-07-15] MED LIST changes: +METO100T44 PO; -METO1TAB69 PO; +POTA-639 PO; -POTA20TA16 PO
[2017-07-15 13:58] LABS: ALBUMIN 3.3 gm/dl (3.4-5.0); ALT/SGPT 16 U/L (12-78); AST/SGOT 11 U/L (15-37); BLOOD UREA NITROGEN 19 mg/dl (7-18); CALCIUM 8.8 mg/dl (8.5-10.1); CARBON DIOXIDE 29 mmol/L (21-32); CHOLESTEROL 180 mg/dl (0-200); CREATININE 0.88 mg/dl (0.60-1.20); GLUCOSE 110 mg/dl (70-99); POTASSIUM 4.2 mmol/L (3.5-5.1); SODIUM 140 mmol/L (136-145); URIC ACID 5.4 mg/dl (2.6-7.2)
[2017-07-15 14:01] LABS: ALKALINE PHOSPHATASE 91 U/L (45-117); LDL CHOLESTEROL CALCULATED 104 mg/dl; TOTAL PROTEIN 7.4 gm/dl (6.4-8.2)
== END | disposition home or self-care (01) ==
LOC: C.LABMFLN 10:18
PROVIDERS: ATTEND Family Medicine
DX: I10 Essential (primary) hypertension (principal); M1A.9XX1 Chronic gout, unspecified, with tophus (tophi); E78.5 Hyperlipidemia, unspecified

== ENCOUNTER 2021-10-10 17:18 | Inpatient (IN) ==
--- NOTE | 2021-10-10 17:34 | History & Physical Report ---
Date of Service October 10, 2021 Assessment & Plan (1) Bradycardia: Plan: Symptomatic bradycardia No chest pain/chest pressure Presented to [place] with presyncope/orthostasis EKG in [place] sinus, resting rate in the 30s with minimal chronotropic response. No high-grade block Troponin [place] high-sensitivity 24. Repeat pending. Admit to PCU, hold metoprolol Cardiology consulted for morning evaluation Pacer pads to bedside, hemodynamically stable and normotensive at time of transfer per [place] signout HTN Telmisartan held for MIREILLE Lasix held for MIREILLE Amlodipine 10 mg daily, continue Metoprolol held for symptomatic bradycardia Hydralazine every 6 hours IV for SBP greater than 180 while above antihypertensives held MIREILLE Prior baseline less than 1 10/05 creatinine acutely elevated to 2.0. Improving but remains elevated in [place] at 1.6 Hold Lasix/ARB Report patient on Lasix and compression for lower extremity edema without history of CHF. Lasix held - BMP qAM Overactive Bladder Continue oxybutynin Gout Continue febuxostat 80 mg daily - No hx of recent NSAID use, stopped celebrex. HLD Diet and exercise limited due to arthritis Not on a statin REGISTERED OCCUPATIONAL THERAPIST Osteoarthritis Tramadol 4-6 tablets daily 10/31 achy pain low back Tophi and DIP joints Had lumbar spinal stenosis injection recently without significant relief Outpatient follow-up Defer NSAIDs in the setting of MIREILLE Chronic venous stasis - No hx of CHF Echo pending with above Defer diuresis, continue compression as above Osteoporosis Pending outpatient bone density test Continued on calcium/vitamin D DVT prophylaxis: SCDs, pharmacal prophylaxis held for potential pacer placement Diet: Heart healthy, low-sodium Disposition: PCU CODE STATUS:Full Code per pt (2) Lightheadedness: (3) Venous stasis ulcers: (4) Inflammatory arthritis: (5) Dyslipidemia: (6) Osteoporosis: (7) Tophaceous gout: (8) Benign essential hypertension: (9) Hyperactivity of bladder: (10) Hyperlipidemia: (11) Lumbar canal stenosis: (12) S/P colon resection: History of Present Illness Primary Care Provider: Cameron Delacruz MD Mera is an 81-year-old female with a past medical history of venous stasis, inflammatory arthritis, hyperlipidemia, lumbar stenosis with chronic back pain, and colon resection due to high-grade adenoma who presented to [place] ER with symptomatic bradycardia and he was referred as a direct admit for pacer placement. At [place] evaluation Per signout patient had a high-sensitivity troponin of 24 with no chest pain or clinical signs of ACS and no EKG changes just of ischemia but with sinus bradycardia in the 30s without significant chronotropic response. No history of Lyme, no screening available although no heart block appreciated. Patient does have a history of metoprolol succinate daily use.No history of heart failure, no echo available for review. Fatigue an dleg swelling fo r'a long time' with many 'tired days' in the preceding few months but acute weakness and fatigue much worse x1 day. No chest pain or chest pressure. No fevers, chills, or sweats. No rashes. No tick bites/hx of lyme disease.Leg swelling improved with uniboots. Stopped lasix due to MIREILLE on Friday. No hx of pulmonary edema. Blood pressure 'ok, usually steady' Presyncope and dizziness without vertigo, no syncope. Medical History: Reviewed Medications: Reviewed. Took meds this AM including Metoprolol. Surgical History: Reviewed Allergies: Reviewed Social History: No tobacco product use, no alcohol use. No Med Marijuana use. Code Status: Full Code Allergies Allergy/AdvReac Type Severity Reaction Status Date / Time lisinopril Allergy Intermediate cough Verified 10/05/21 13:50 allopurinol Allergy Mild ITCHY Verified 10/05/21 13:50 sertraline Allergy Unknown unknown Verified 10/05/21 13:50 diltiazem Allergy low heart Verified 10/05/21 13:50 rate Home Medications Medication Instructions Recorded Confirmed Type cholecalciferol (vitamin D3) 25 1,000 units PO DAILY 12/31/18 10/05/21 History mcg (1,000 unit) capsule parafin bath #1 ea 04/07/19 10/05/21 Rx telmisartan 80 mg tablet 80 mg PO DAILY #90 tabs 10/23/20 10/05/21 Rx alendronate 70 mg tablet 70 mg PO WEEKLY #12 tabs 01/22/21 10/05/21 Rx furosemide 40 mg tablet 80 mg PO BID #120 tabs 01/22/21 10/05/21 Rx amlodipine 10 mg tablet 10 mg PO DAILY #90 tabs 02/21/21 10/05/21 Rx mecobalamin (vitamin B12) 1,000 1,000 mcg sublingual DAILY #30 tabs 03/20/21 10/05/21 Rx mcg disintegrating tablet,sublingual metoprolol succinate 100 mg See Rx Instructions PO .COMPLEX 03/26/21 10/05/21 Rx tablet,extended release 24 hr #135 tabs oxybutynin chloride 5 mg tablet 5 mg PO DAILY #90 tabs 03/26/21 10/05/21 Rx febuxostat 80 mg tablet 80 mg PO DAILY #30 tabs 05/22/21 10/05/21 Rx potassium chloride 20 mEq 20 meq PO TID #270 tabs 08/22/21 10/05/21 Rx tablet,extended release nystatin 100,000 unit/gram topical 1 applic topical BID PRN rash #120 09/19/21 10/05/21 Rx powder grams tramadol 50 mg tablet See Rx Instructions PO Q8H PRN 09/19/21 10/05/21 Rx pain #180 tabs hydroxyzine HCl 25 mg tablet 25 mg PO .1-2 at HS PRN itching 10/05/21 10/05/21 Rx #60 tabs Past Med/Surg History Medical History Benign essential hypertension Bilateral leg edema Bradycardia Chronic tophaceous gout Colon cancer Dyslipidemia Dyspnea Generalized osteoarthritis of multiple sites 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 of bladder Hyperlipidemia Inflammatory arthritis Insomnia, persistent Itching Left leg cellulitis Left wrist pain Leg edema Lightheadedness Lumbar canal stenosis Medicare annual wellness visit, subsequent Medicare annual wellness visit, subsequent Menopause Open wound of arm Osteoporosis Thoracic back pain Tophaceous gout Venous stasis ulcers Ventral hernia Wound infection Surgical History History of colon surgery History of foot surgery History of hysterectomy History of knee replacement History of total hip replacement History of umbilical hernia repair S/P colon resection Family History Son Hypertension Social History Smoking Status: Never smoker Hx Alcohol Use: No Hx Substance Use: No Preferred Language: Turkmen Visual Impairment: No Limitations Hearing Ability: Normal marital status: / Current Living Situation: Family current occupational status: retired How many Children do You have: 2 How many Children do You have Comment: 1 living Feels Safe at Home: Yes Childhood Exposure to Second-Hand Smoke: No caffeine: Yes Dental Care, Regularly: No Physical Activity Frequency: Does not Exercise Seatbelt Use: always Sunscreen Use: No Review of Systems Review of Systems: All systems reviewed & are unremarkable except as noted in HPI & below Physical Exam Physical Exam: General: A&Ox3. NAD. Cooperative. HEENT: Atraumatic, normocephalic. Vision/hearing intact. Pulm: CTAB A&P. -wheezes, -rales, -rhonchi. Symmetrical chest rise. No increased work of breathing. No respiratory distress. Cardiac: RRR, -mrg. Radial pulses intact and symmetrical. Abdominal: Nontender, nondistended, soft. BS present. Ext: Bilateral lower edema, wrapped in IRMA. PG Care Time/CCT Total # of Minutes Spent Total Time Spent with Patient: Total time spent is greater than 50% in coordination of care (as documented) at patient's floor/unit and/or counseling patient: Coding Level of Care Code 07734 Initial Inpt Care Lvl 3 Diagnoses Bradycardia R00.1 Lightheadedness R42 Venous stasis ulcers I83.009; L97.909 Inflammatory arthritis M19.90 Dyslipidemia E78.5 Osteoporosis M81.0 Tophaceous gout [id number] Benign essential hypertension I10 Hyperactivity of bladder N31.8 Hyperlipidemia E78.5 Lumbar canal stenosis M48.061 S/P colon resection Z90.49
[2021-10-10] MEDS ORDERED: ACETAMINOPHEN 325 MG TAB PO PRN (17:39)
[2021-10-10] MEDS ORDERED: POLYETHYLENE (MIRALAX) 17 GM PACK PO PRN (17:39)
[2021-10-10] MEDS ORDERED: ATROPINE SULFATE 0.1 MG/ML 5ML SYR IV PRN (19:27)
[2021-10-10] MEDS: hydrALAZINE HCL 20 MG/ML VIAL IV SCH (20:13)
[2021-10-11] MEDS: hydrALAZINE HCL 20 MG/ML VIAL IV SCH ×2 (00:43→05:56)
[2021-10-11] MEDS ORDERED: FUROSEMIDE INJ 20 MG/2 ML VIAL IV ONE (01:43)
--- NOTE | 2021-10-11 01:52 | Communication Note ---
Date of Service: October 11, 2021 I was informed by patient's nurse that the patient now has 2L/min supplemental oxygen requirement. Upon evaluation the patient is hemodynamically stable on 2L/min nasal cannula. Lungs with bibasilar expiratory crackles and decreased lung sounds in the right base. Heart RRR w/o m/r/g. No JVD. mild LE pitting edema. CXR with small right pleural effusion and mild pulmonary vascular congestion. BNP 784 (up from 104 on 10/05). Hypoxia is likely due to mild fluid overload. Patient reportedly takes Lasix 80mg PO BID at home for LE edema and does not have a h/o CHF. - ordered Lasix 20mg IV - will obtain TTE in AM
[2021-10-11 07:47] LABS: Basophils # (auto) 0.03 K/uL (0-0.2); Basophils % (auto) 0.5 %; Eosinophils # (auto) 0.15 K/uL (0-0.50); Eosinophils % (auto) 2.7 %; Hematocrit (blood only) 39.1 % (34.1-44.9); Hemoglobin 12.3 g/dl (12.0-16.0); Immature Granulocytes # (auto) 0.02 K/uL (0.00-0.02); Immature Granulocytes % (auto) 0.4 %; Lymphocytes # (auto) 0.91 K/uL (1.2-3.4); Lymphocytes % (auto) 16.6 %; Mean Corpuscular Hemoglobin 28.7 pg (25.0-34.0); Mean Corpuscular Hgb Conc 31.5 g/dL (32.0-36.0); Mean Corpuscular Volume 91.4 fL (80.0-100.0); Mean Platelet Volume 9.2 fL (9.4-12.3); Monocytes # (auto) 0.66 K/uL (0.24-0.82); Monocytes % (auto) 12.1 %; Neutrophils % (auto) 67.7 %; Platelet Count 242 K/uL (130-400); RDW Coefficient of Variation 14.2 % (11.5-14.5); RDW Standard Deviation 47.8 fL (36.4-46.3); Red Blood Count 4.28 M/uL (3.93-5.22); White Blood Count 5.47 K/ul (4.8-10.8)
--- NOTE | 2021-10-11 07:59 | XRay Report ---
SINGLE VIEW CHEST CLINICAL HISTORY: Hypoxia FINDINGS: An AP, portable, upright chest radiograph is compared to study dated 12/11/2012. The examina tion is degraded by portable technique and large body habitus. The heart is enlarged noting atherosc lerotic calcification of the thoracic aorta. There is mild pulmonary vascular congestion. Small pleur al effusions are suspected. Atelectasis is noted at the lung bases. No pneumothorax is seen. The skel etal structures are osteopenic. The bony thorax is grossly intact. IMPRESSION: 1. Cardiomegaly with pulmonary vascular congestion. 2. Suspect small pleural effusions.. ACT 112: Negative or not required by law. Electronically signed by: Cameron Lim M.D. 10/11/2021 7:58 AM
[2021-10-11 08:10] LABS: Albumin Globulin Ratio 0.9 (0.9-2); Albumin Level 3.4 gm/dl (3.4-5.0); BUN Creatinine Ratio 20.4 (10-20); Bilirubin,Total 0.6 mg/dl (0.2-1.0); Calcium 8.8 mg/dl (8.5-10.1); Creatinine Clr Calc Pharmacy 45.9 ml/min; Est GFR (African American) 52.1 ml/min; Est GFR (Non-African American) 44.9 ml/min; Globulin 3.9 gm/dl (2.5-4.0); Magnesium 2.4 mg/dl (1.7-2.4); Potassium 3.9 mmol/L (3.5-5.1); Total Protein 7.3 gm/dl (6.0-8.3)
[2021-10-11] MEDS: amLODIPine BESYLATE 5 MG TAB PO SCH (08:25)
[2021-10-11] MEDS ORDERED: hydrALAZINE HCL 20 MG/ML VIAL IV PRN (11:57)
--- NOTE | 2021-10-11 12:28 | Hospitalist Progress Note ---
Date of Service October 11, 2021 Assessment & Plan (1) Bradycardia: Plan: Symptomatic bradycardia --> Improved w/ BB hold No chest pain/chest pressure Presented to [place] with presyncope/orthostasis EKG in [place] sinus, resting rate in the 30s with minimal chronotropic response. No high-grade block Troponin [place] high-sensitivity 24. Repeat normal. Admit to PCU, hold metoprolol - Pt with HR improve to 50-60s with appropriate increase when walking to bathroom this AM. Suspect 2/2 BB. No further metoprolol. Defer pacer. HFpEF - +2L O2, +LE edema, +PVC - Echo with grade II diastolic dysfunction, EF 55-60%. No wall motion abnormalities - Clinically with increased volume - Cr wnl this morning - Lasix 20mg IV daily, increase to 40mg if needed based on UOP. Strict I&O - Low sodium diet - Will have followup with CHF clinic HTN Telmisartan held for MIREILLE, MIREILLE resolved --> ARB resumed Amlodipine 10 mg daily, continue Metoprolol held for symptomatic bradycardia Hydralazine every 6 hours IV for SBP greater than 180 while above antihyperten sives held MIREILLE, resolved Prior baseline less than 1 10/05 creatinine acutely elevated to 2.0. Improving but remains elevated in [place] at 1.6 - Normalized 10/11 after lasix - Lasix/antihypertensives as above - BMP qAM Overactive Bladder Continue oxybutynin Gout Continue febuxostat 80 mg daily - No hx of recent NSAID use, stopped celebrex. HLD Diet and exercise limited due to arthritis Not on a statin [employer] Osteoarthritis Tramadol 4-6 tablets daily 8/10 achy pain low back Tophi and DIP joints Had lumbar spinal stenosis injection recently without significant relief Outpatient follow-up Defer NSAIDs in the setting of MIREILLE Chronic venous stasis - No hx of CHF Echo pending with above Defer diuresis, continue compression as above Osteoporosis Pending outpatient bone density test Continued on calcium/vitamin D DVT prophylaxis: SCDs, pharmacal prophylaxis held for potential pacer placement Diet: Heart healthy, low-sodium Disposition: PCU CODE STATUS:Full Code per pt (2) Lightheadedness: (3) Venous stasis ulcers: (4) Inflammatory arthritis: (5) Dyslipidemia: (6) Osteoporosis: (7) Tophaceous gout: (8) Benign essential hypertension: (9) Hyperactivity of bladder: (10) Hyperlipidemia: (11) Lumbar canal stenosis: (12) S/P colon resection: (13) Acute heart failure with preserved ejection fraction: Admission and Anticipated Discharge Date Admission Date: October 10, 2021 Subjective Seen at bedside. On 2L NC. No dyspnea. Walked to bathroom and back without lighheadedness/dizziness/weakness. No CP/CP. Sitting up in chair, feels well. +bilateral leg edema with discomfort similar to prior. Warmth/erythema bilat without tenderness to soft touch in lower extremities, pt reports completed abx for this a week ago without significant improvement. Denies palpitations. No n/v/d/c. Review of Systems Review of Systems: All systems reviewed & are unremarkable except as noted in Subjective Physical Exam 2 Physical Exam: General: A&Ox3. NAD. Cooperative. HEENT: Atraumatic, normocephalic. Vision/hearing intact. Pulm: Diminished in bases, no wheezes/rales/rhonchi. Symmetrical chest rise. No increased work of breathing. No respiratory distress. Cardiac: REgular, bradycardic, +soft sm -rg. Radial pulses intact and symmetrical. Abdominal: Nontender, nondistended, soft. BS present. Ext: Bilateral lower edema. +mild erythema and warmth of the lower extremities bilaterally without tenderness to soft touch/palpation. Recently completed tx 1 week ago for ?cellulitis without significant change. Results & Data Results & Data ([facility]) Vital Signs (Past 12 Hours) Vital Signs Temp Pulse Resp BP Pulse Ox O2 Del Method O2 Flow Rate 10/11/21 11:34 36.5 C 56 L 18 148/66 H 95 Nasal Cannula 2 10/11/21 08:23 36.5 C 52 L 16 134/73 98 Room Air 10/11/21 05:21 36.8 C 54 L 16 124/39 L 96 Room Air 10/11/21 00:30 62 131/56 L 93 Nasal Cannula 2 PG Care Time/CCT Total # of Minutes Spent Total Time Spent with Patient: Total time spent is greater than 50% in coordination of care (as documented) at patient's floor/unit and/or counseling patient: Coding Level of Care Code 34159 Subseq Hosp Care Lvl 2 Diagnoses Bradycardia R00.1 Lightheadedness R42 Venous stasis ulcers I83.009; L97.909 Inflammatory arthritis M19.90 Dyslipidemia E78.5 Osteoporosis M81.0 Tophaceous gout [id number].[id number] Benign essential hypertension I10 Hyperactivity of bladder N31.8 Hyperlipidemia E78.5 Lumbar canal stenosis M48.061 S/P colon resection Z90.49 Acute heart failure with preserved ejection fraction I50.31
[2021-10-11] MEDS ORDERED: FUROSEMIDE INJ 20 MG/2 ML VIAL IV SCH (12:30)
--- NOTE | 2021-10-11 17:11 | Cardiology Consultation ---
Date of Consultation October 11, 2021 Assessment & Plan (1) Acute heart failure with preserved ejection fraction: (2) Bradycardia: (3) Benign essential hypertension: Plan ASSESSMENT/PLAN: 1. Acute heart failure with preserved EF: She appears hypervolemic. Will increase Lasix to 40 mg IV once daily. She received 2 doses of 20 mg IV today. Would try to diurese at least 1 L negative net fluid balance today. Low-sodium diet, less than 2000 mg daily discussed with her. Strict I&Os while hospitalized. Daily weights. Recommend heart failure program if she is agreeable. Ellen Osullivan met with her today to introduce to program. 2. Bradycardia: Only mild bradycardia while here. Her last dose of metoprolol succinate was yesterday a.m.. Recommend discontinuation of beta-felicia. If no symptomatic bradycardia off of rate-controlling medications, she would not require pacemaker. No indication for pacemaker at this point. 3. Hypertension: Blood pressure has been mostly normotensive while here. Can continue amlodipine. 4. Disposition: Cardiology will continue to follow along. Plan of care communicated with primary hospitalist, Dr. Santana. Thank you for allowing me to participate in the care of your patient. Please call for any other questions or concerns. Sincerely, Jorden Cowan M.D. History of Present Illness Reason for Consultation: Sx bradycardia, pacer" Requesting Physician: Alex Santana MD Attending Physician: Alex Santana MD History of Present Illness Mrs. Duran is a very pleasant 81-year-old female with a history significant for hypertension and chronic lower extremity edema. She was admitted on 10/10/2021 for reported symptomatic bradycardia. She was following up with her PCP yesterday, Dr. Delacruz, for routine follow-up and was noted to have a heart rate in the 30s. She quotes a heart rate of 38 beats per minute and admitted that she had been feeling tired lately. When she woke up on 10/10/2021, she felt short of breath and dizzy. She has been struggling with lower extremity swelling and at times, weeping occurred from her lower extremities. She also recalls a near syncopal episode recently while walking. She does not exercise. She has been on metoprolol for years, specifically metoprolol succinate, without recent titration. She also recalls being on diltiazem in the past but it was discontinued due to bradycardia and replaced with amlodipine a couple of years ago. She had been taking Lasix 40 mg twice daily chronically but it was discontinued 3 days ago due to abnormal renal function. She had outpatient labs on 10/05/2021 which reported a creatinine of 2 when her baseline is typically 0.8- 1. She also admits that she consumes food high in sodium content, including potato chips. She reports orthopnea last night but no significant paroxysmal nocturnal dyspnea. Overnight, supplemental oxygen was initiated and BNP was ordered, demonstrating a value of 784 when it was 104 on 10/05/2021. 20 mg of IV Lasix was ordered by the hospitalist team overnight. She denies chest pain, syncope, palpitations, or bleeding such as melena, hematochezia, or hematuria. Review of systems: As above. Review of systems otherwise negative/unremarkable. Family history: No known premature CAD. Social history: She denies smoking or alcohol abuse. She lives at home with her son and daughter in law. She is a . She had 2 sons. Her eldest son at 38 from myocarditis. She was unaccompanied in her hospital room. Allergies Allergy/AdvReac Type Severity Reaction Status Date / Time lisinopril Allergy Intermediate cough Verified 10/05/21 13:50 allopurinol Allergy Mild ITCHY Verified 10/05/21 13:50 sertraline Allergy Unknown unknown Verified 10/05/21 13:50 diltiazem Allergy low heart Verified 10/05/21 13:50 rate Home Medications Medication Instructions Recorded Confirmed Type cholecalciferol (vitamin D3) 25 1,000 units PO DAILY 12/31/18 10/05/21 History mcg (1,000 unit) capsule parafin bath #1 ea 04/07/19 10/05/21 Rx telmisartan 80 mg tablet 80 mg PO DAILY #90 tabs 10/23/20 10/05/21 Rx alendronate 70 mg tablet 70 mg PO WEEKLY #12 tabs 01/22/21 10/05/21 Rx furosemide 40 mg tablet 80 mg PO BID #120 tabs 01/22/21 10/05/21 Rx amlodipine 10 mg tablet 10 mg PO DAILY #90 tabs 02/21/21 10/05/21 Rx mecobalamin (vitamin B12) 1,000 1,000 mcg sublingual DAILY #30 tabs 03/20/21 10/05/21 Rx mcg disintegrating tablet,sublingual metoprolol succinate 100 mg See Rx Instructions PO .COMPLEX 03/26/21 10/05/21 Rx tablet,extended release 24 hr #135 tabs oxybutynin chloride 5 mg tablet 5 mg PO DAILY #90 tabs 03/26/21 10/05/21 Rx febuxostat 80 mg tablet 80 mg PO DAILY #30 tabs 05/22/21 10/05/21 Rx potassium chloride 20 mEq 20 meq PO TID #270 tabs 08/22/21 10/05/21 Rx tablet,extended release nystatin 100,000 unit/gram topical 1 applic topical BID PRN rash #120 09/19/21 10/05/21 Rx powder grams tramadol 50 mg tablet See Rx Instructions PO Q8H PRN 09/19/21 10/05/21 Rx pain #180 tabs hydroxyzine HCl 25 mg tablet 25 mg PO .1-2 at HS PRN itching 10/05/21 10/05/21 Rx #60 tabs Patient History Medical History (Updated 10/11/21 @ 17:17 by Rom Cowan MD) Benign essential hypertension Bilateral leg edema Bradycardia Chronic tophaceous gout Colon cancer Dyslipidemia Generalized osteoarthritis of multiple sites 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 of bladder Inflammatory arthritis Insomnia, persistent Itching Left leg cellulitis Left wrist pain Leg edema Lightheadedness Lumbar canal stenosis Menopause Open wound of arm Osteoporosis Thoracic back pain Tophaceous gout Venous stasis ulcers Ventral hernia Wound infection Surgical History History of colon surgery History of foot surgery History of hysterectomy History of knee replacement History of total hip replacement History of umbilical hernia repair S/P colon resection Family History Son Hypertension Social History Smoking Status: Never smoker Hx Alcohol Use: No Hx Substance Use: No Preferred Language: Czech Communication Ability: Effective Visual Impairment: No Limitations Hearing Ability: Normal [employer]visor [employer] Vehicle [employer] Required: No Beliefs That Will Affect Care: None marital status: / Current Living Situation: Family current occupational status: retired How many Children do You have: 2 How many Children do You have Comment: 1 living Other Information That Helps Us Care for You: No Feels Safe at Home: Yes Safety Concerns: Feels Safe At This Time Childhood Exposure to Second-Hand Smoke: No caffeine: Yes Dental Care, Regularly: No Physical Activity Frequency: Does not Exercise Seatbelt Use: always Sunscreen Use: No Assistive Devices: Walker Physical Exam Physical Exam: Gen.: No acute distress. Alert and oriented. HEENT: Anicteric sclera. Neck: Elevated JVD. Hepatic jugular reflux. No bruits. Normal carotid upstrokes bilaterally. Cardiac: PMI was nonpalpable. No ventricular heave. Regular. Normal S1-S2. No murmurs, rubs, or gallops. Pulmonary: Clear to auscultation bilaterally without wheezes, rales, or rhonchi. Abdomen: Soft, nontender, nondistended, with normoactive bowel sounds. No bruits noted. Extremities: 2+ radial pulses bilaterally. 2+ posterior tibialis pulses bilaterally. Two to 3+ bilateral lower extremity edema. No cyanosis. Psychiatric: Affect appears appropriate. Results & Data ([facility]) Vital Signs (Past 12 Hours) Vital Signs Temp Pulse Pulse Resp BP Pulse Ox O2 Del Method 10/11/21 16:40 36.7 C 60 18 132/64 91 Room Air 10/11/21 14:07 55 L 10/11/21 06:08 47 L 10/11/21 11:34 36.5 C 56 L 18 148/66 H 95 Nasal Cannula 10/11/21 08:23 36.5 C 52 L 16 134/73 98 Room Air 10/11/21 05:21 36.8 C 54 L 16 124/39 L 96 Room Air O2 Flow Rate 10/11/21 16:40 10/11/21 14:07 10/11/21 06:08 10/11/21 11:34 2 10/11/21 08:23 10/11/21 05:21 Intake & Output 10/09/21 10/10/21 10/11/21 10/12/21 06:59 06:59 06:59 06:59 Intake Total 360 / 360 400 / 400 Output Total 1150 / 1150 Balance 360 / 360 -750 / -750 Weight 281 lb 15.539 oz Laboratory Results Laboratory Results - last 24 hr 10/10/21 10/11/21 10/11/21 20:40 00:41 07:03 WBC 5.47 RBC 4.28 Hgb 12.3 Hct 39.1 MCV 91.4 MCH 28.7 MCHC 31.5 L RDW Std Deviation 47.8 H RDW Coeff of [place] 14.2 Plt Count 242 MPV 9.2 L Immature Gran % (Auto) 0.4 Neut % (Auto) 67.7 Lymph % (Auto) 16.6 [place] % (Auto) 12.1 Eos % (Auto) 2.7 Baso % (Auto) 0.5 Neut # (Auto) 3.70 Lymph # (Auto) 0.91 L [place] # (Auto) 0.66 Eos # (Auto) 0.15 Baso # (Auto) 0.03 Immature Gran # (Auto) 0.02 Sodium Potassium Chloride Carbon Dioxide Anion Gap BUN Creatinine Est Cr Clr Drug Dosing Est GFR ( Amer) Est GFR (Non-Af Amer) BUN/Creatinine Ratio Glucose Calcium Magnesium Total Bilirubin AST ALT Alkaline Phosphatase Troponin I High Sens 12.6 B-Natriuretic Peptide 784 H Total Protein Albumin Globulin Albumin/Globulin Ratio 10/11/21 07:03 WBC RBC Hgb Hct MCV MCH MCHC RDW Std Deviation RDW Coeff of [place] Plt Count MPV Immature Gran % (Auto) Neut % (Auto) Lymph % (Auto) [place] % (Auto) Eos % (Auto) Baso % (Auto) Neut # (Auto) Lymph # (Auto) [place] # (Auto) Eos # (Auto) Baso # (Auto) Immature Gran # (Auto) Sodium 141 Potassium 3.9 Chloride 107 Carbon Dioxide 29 Anion Gap 5 BUN 23 Creatinine 1.13 Est Cr Clr Drug Dosing 45.9 Est GFR ( Amer) 52.1 Est GFR (Non-Af Amer) 44.9 BUN/Creatinine Ratio 20.4 H Glucose 103 H Calcium 8.8 Magnesium 2.4 Total Bilirubin 0.6 AST 15 ALT 13 Alkaline Phosphatase 52 Troponin I High Sens B-Natriuretic Peptide Total Protein 7.3 Albumin 3.4 Globulin 3.9 Albumin/Globulin Ratio 0.9 Diagnostic Findings Echo 10/11/2021 (read by [employer]): Normal LV size, wall motion, systolic function. EF 55-60%. Sclerotic aortic valve without stenosis. Severe MAC. Telemetry personally reviewed: Sinus bradycardia in the 50s based on review this morning. No arrhythmia. No severe bradycardia. ECG personally reviewed 10/10/2021: Sinus 65 beats per minute. Chest x-ray 10/11/2021: Mild pulmonary vascular congestion per Radiology. Small pleural effusions suspected. She Medications Administered Current Inpatient Medications Acetaminophen (Acetaminophen 325 Mg Tab) 650 mg PO Q4H PRN PRN Reason: Pain or Fever Stop: 11/09/21 17:38 Amlodipine Besylate (Amlodipine Besylate 5 Mg Tab) 10 mg PO DAILY MEL Stop: 11/10/21 08:59 Last Admin: 10/11/21 08:25 Dose: 10 mg Atropine Sulfate (Atropine Sulfate 0.1 Mg/Ml 5ml Syr) 0.5 mg IV Q5M PRN PRN Reason: SYMPTOMATIC TONY <50 Stop: 11/09/21 19:26 Furosemide (Furosemide 40 Mg/4 Ml Vial) 40 mg IV DAILY MEL Stop: 11/11/21 08:59 Hydralazine HCl (Hydralazine Hcl 20 Mg/Ml Vial) 5 mg IV Q6H PRN PRN Reason: SBP >180 Stop: 11/09/21 17:59 Polyethylene Glycol (Polyethylene (Miralax) 17 Gm Pack) 17 gm PO DAILY PRN PRN Reason: Constipation Stop: 11/09/21 17:38 PG Care Time/CCT Total # of Minutes Spent Total Time Spent with Patient: Total time spent is greater than 50% in coordination of care (as documented) at patient's floor/unit and/or counseling patient: Coding Level of Care Code 56556 Initial Inpt Care Lvl 3 Diagnoses Acute heart failure with preserved ejection fraction I50.31 Bradycardia R00.1 Benign essential hypertension I10
--- NOTE | 2021-10-11 22:25 | Electrocardiogram Report ---
Test Reason : Blood Pressure : / mmHG Vent. Rate : 065 BPM Atrial Rate : 065 BPM P-R Int : 184 ms QRS Dur : 100 ms QT Int : 412 ms P-R-T Axes : 083 -01 070 degrees QTc Int : 428 ms Normal sinus rhythm Low voltage QRS Borderline ECG When compared with ECG of 11-DEC-2012 12:43, Premature ventricular complexes are no longer Present Confirmed by Rom Cowan ([id number]) on 10/11/2021 10:25:07 PM Referred By: Alex Santana Confirmed By:Rom Cowan
[2021-10-12 08:01] LABS: Basophils # (auto) 0.03 K/uL (0-0.2); Basophils % (auto) 0.6 %; Eosinophils # (auto) 0.14 K/uL (0-0.50); Eosinophils % (auto) 2.9 %; Hematocrit (blood only) 36.3 % (34.1-44.9); Hemoglobin 11.8 g/dl (12.0-16.0); Immature Granulocytes # (auto) 0.03 K/uL (0.00-0.02); Immature Granulocytes % (auto) 0.6 %; Lymphocytes # (auto) 0.94 K/uL (1.2-3.4); Lymphocytes % (auto) 19.3 %; Mean Corpuscular Hemoglobin 28.9 pg (25.0-34.0); Mean Corpuscular Hgb Conc 32.5 g/dL (32.0-36.0); Mean Corpuscular Volume 88.8 fL (80.0-100.0); Mean Platelet Volume 8.9 fL (9.4-12.3); Monocytes # (auto) 0.66 K/uL (0.24-0.82); Monocytes % (auto) 13.5 %; Neutrophils # (auto) 3.08 K/uL (1.4-6.5); Neutrophils % (auto) 63.1 %; Platelet Count 236 K/uL (130-400); RDW Coefficient of Variation 14.2 % (11.5-14.5); RDW Standard Deviation 45.6 fL (36.4-46.3); Red Blood Count 4.09 M/uL (3.93-5.22); White Blood Count 4.88 K/ul (4.8-10.8)
[2021-10-12 08:26] LABS: BUN Creatinine Ratio 18.5 (10-20); Calcium 8.3 mg/dl (8.5-10.1); Creatinine Clr Calc Pharmacy 43.7 ml/min; Est GFR (African American) 48.9 ml/min; Est GFR (Non-African American) 42.2 ml/min; Potassium 3.4 mmol/L (3.5-5.1)
[2021-10-12] MEDS: amLODIPine BESYLATE 5 MG TAB PO SCH (08:27)
[2021-10-12] MEDS: FUROSEMIDE 40 MG/4 ML VIAL IV SCH (08:27)
--- NOTE | 2021-10-12 09:44 | Hospitalist Progress Note ---
Date of Service October 12, 2021 Assessment & Plan (1) Bradycardia: Plan: HFpEF ~1L output toal after 2x 20mg IV lasix doses. Continue 40mg IV lasix qAM -Continues with new but downtrending oxygen requirement. Continues with lower extremity edema - Echo with grade II diastolic dysfunction, EF 55-60%. No wall motion abnormalities Creatinine remains at baseline, tolerating diuresis -Target output approximately 1 L daily strict I&O Inconsistent bed weights, standing weights as able. Swing last year prior to admission approximately 124.7 kg - Low sodium diet - Will have followup with CHF clinic Continue to wean oxygen, SPO2 goal 94%. Symptomatic bradycardia --> Improved w/ BB hold No chest pain/chest pressure Presented to [place] with presyncope/orthostasis EKG in [place] sinus, resting rate in the 30s with minimal chronotropic response. No high-grade block Troponin [place] high-sensitivity 24. Repeat normal. Admit to PCU, hold metoprolol - Pt with HR improve to 50-60s with appropriate increase when walking to bathroom this AM. Suspect 2/2 BB. No further metoprolol. No indication for pacer at this time. HTN Telmisartan held for MIREILLE, MIREILLE resolved --> ARB resumed Amlodipine 10 mg daily, continue Metoprolol medically discontinued due to bradycardia Hydralazine every 6 hours IV for SBP greater than 180 while above antihypertensives held Blood pressure normotensive to slightly hypertensive. Continue to follow with above treatment, if needed can consider adjunct HCTZ MIREILLE, resolved Prior baseline less than 1 10/05 creatinine acutely elevated to 2.0. Improving but remains elevated in [place] at 1.6 - Normalized 10/11 after lasix -Continue to tolerate diuresis above with creatinine at baseline Overactive Bladder Continue oxybutynin Gout Continue febuxostat 80 mg daily - No hx of recent NSAID use, stopped celebrex. HLD Diet and exercise limited due to arthritis Not on a statin [employer] Osteoarthritis Tramadol 4-6 tablets daily 8/ achy pain low back Tophi and DIP joints Had lumbar spinal stenosis injection recently without significant relief Outpatient follow-up Defer NSAIDs with MIREILLE during admission and while undergoing diuresis above Osteoporosis Pending outpatient bone density test Continued on calcium/vitamin D DVT prophylaxis: SCDs, no pacer placement anticipated. Lovenox DVT PPx Diet: Heart healthy, low-sodium Disposition: PCU CODE STATUS:Full Code per pt (2) Lightheadedness: (3) Venous stasis ulcers: (4) Inflammatory arthritis: (5) Dyslipidemia: (6) Osteoporosis: (7) Tophaceous gout: (8) Benign essential hypertension: (9) Hyperactivity of bladder: (10) Hyperlipidemia: (11) Lumbar canal stenosis: (12) S/P colon resection: (13) Acute heart failure with preserved ejection fraction: Admission and Anticipated Discharge Date Admission Date: October 10, 2021 Subjective Doing well at bedside. Feels a little bit better, remains on 1-2 L of nasal cannula oxygen with no home requirement. Continues to have bilateral swelling in her legs, no overlying tenderness to soft touch. She reports that she slept very well and actually got 4 hours of sleep which is unusual for her even at home, and was able to sleep comfortably laying down. Did have brisk output to Lasix with both doses, reports no pain when peeing,, 40 mg to total dose yesterday consolidated into single a.m. dose today. Denies chest pain, chest pressure, fever, chills, sweats. Review of Systems Review of Systems: All systems reviewed & are unremarkable except as noted in Subjective Physical Exam Physical Exam: General: A&Ox3. NAD. Cooperative. HEENT: Atraumatic, normocephalic. Vision/hearing intact. Pulm: Moderate air movement, no wheezes/rales appreciated. Symmetrical chest rise. No increased work of breathing. No respiratory distress. Cardiac: REgular, bradycardic, +soft sm -rg. Radial pulses intact and symmetrical. Abdominal: Nontender, nondistended, soft. BS present. Ext: Bilateral lower edema, similar to prior. +mild erythema and warmth of the lower extremities bilaterally without tenderness to soft touch/palpation, no change from prior. Results & Data Results & Data ([facility]) Vital Signs (Past 12 Hours) Vital Signs Temp Pulse Pulse Resp BP Pulse Ox O2 Del Method 10/12/21 08:00 Nasal Cannula 10/12/21 07:30 36.5 C 59 L 18 158/63 H 96 Nasal Cannula 10/12/21 03:20 36.7 C 62 18 136/54 L 95 Nasal Cannula 10/12/21 03:37 65 07/21/22 23:07 36.7 C 60 18 146/67 H 96 Nasal Cannula O2 Flow Rate 10/12/21 08:00 1 10/12/21 07:30 1 10/12/21 03:20 1.0 10/12/21 03:37 10/11/21 23:07 1.0 PG Care Time/CCT Total # of Minutes Spent Total Time Spent with Patient: Total time spent is greater than 50% in coordination of care (as documented) at patient's floor/unit and/or counseling patient: Coding Level of Care Code 72428 Subseq Hosp Care Lvl 2 Diagnoses Bradycardia R00.1 Lightheadedness R42 Venous stasis ulcers I83.009; L97.909 Inflammatory arthritis M19.90 Dyslipidemia E78.5 Osteoporosis M81.0 Tophaceous gout [id number] Benign essential hypertension I10 Hyperactivity of bladder N31.8 Hyperlipidemia E78.5 Lumbar canal stenosis M48.061 S/P colon resection Z90.49 Acute heart failure with preserved ejection fraction I50.31
[2021-10-12] MEDS: POTASSIUM CHLORIDE CRTAB 20 MEQ TABCR PO SCH (10:49)
[2021-10-12] MEDS: ENOXAPARIN INJ 40 MG/0.4 ML SYR SQ SCH (12:47)
--- NOTE | 2021-10-12 12:49 | Cardiology Progress Note ---
Date of Service October 12, 2021 Assessment & Plan (1) Acute heart failure with preserved ejection fraction: (2) Bradycardia: (3) Benign essential hypertension: Plan ASSESSMENT/PLAN: 1. Acute heart failure with preserved EF: Still hypervolemic but improving with diuresis. Lasix 40 mg IV once daily starting today after 2 doses of 20 mg IV yesterday. Would try to diurese at least 1 L negative net fluid balance today. Low-sodium diet, less than 2000 mg daily discussed with her. Strict I&Os while hospitalized. Daily weights. She is agreeable to the Heart failure program and has met Ellen Osullivan. 2. Bradycardia: Only mild bradycardia while here. Her last dose of metoprolol succinate was 10/10/21 morning. Beta-felicia has been discontinued. If no symptomatic bradycardia off of rate-controlling medications, she would not require pacemaker. No indication for pacemaker at this point. 3. Hypertension: Blood pressure has been normotensive to mildly hypertensive. Can continue amlodipine. Can adjust medical therapy if blood pressure consistently elevated but would avoid rate-controlling medications. 4. Disposition: Hopefully can be discharged in the next day or so if continues to improve from a heart failure standpoint. I will be away from the hospital, but for any questions or concerns, please do not hesitate to contact the on-call director of community services for [facility]. Plan of care communicated with primary hospitalist, Dr. Santana. On discharge, she should follow-up with heart failure program within 1 week. Admission and Anticipated Discharge Date Admission Date: October 10, 2021 Subjective She was seen earlier this morning. Her breathing continues to improve. She had mild orthopnea at times if she was moving around in bed has mild dyspnea with exertion. She denies chest pain, syncope, near-syncope, palpitations, or bleeding. She was alone in her hospital room. Review of systems: As above. Physical Exam Physical Exam: Gen.: No acute distress. Alert and oriented. HEENT: Anicteric sclera. Neck: No appreciable JVD. Hepatic jugular reflux noted. Cardiac: PMI was nonpalpable. No ventricular heave. Regular near 60 bpm. Normal S1-S2. No murmurs, rubs, or gallops. Pulmonary: Clear to auscultation bilaterally without wheezes, rales, or rhonchi. Abdomen: Soft, nontender, nondistended, with normoactive bowel sounds. No bruits noted. Extremities: 2+ radial pulses bilaterally. 2+ posterior tibialis pulses bilaterally. 1+ bilateral lower extremity edema. No cyanosis. Psychiatric: Affect appears appropriate. Results & Data ([facility]) Vital Signs (Past 12 Hours) Vital Signs Temp Pulse Pulse Resp BP Pulse Ox O2 Del Method 10/12/21 11:52 36.6 C 68 18 153/75 H 96 Nasal Cannula 10/12/21 08:00 Nasal Cannula 10/12/21 07:30 36.5 C 59 L 18 158/63 H 96 Nasal Cannula 10/12/21 03:20 36.7 C 62 18 136/54 L 95 Nasal Cannula 10/12/21 03:37 65 O2 Flow Rate 10/12/21 11:52 1 10/12/21 08:00 1 10/12/21 07:30 1 10/12/21 03:20 1.0 10/12/21 03:37 Intake & Output 10/10/21 10/11/21 10/12/21 10/13/21 06:59 06:59 06:59 06:59 Intake Total 360 / 360 700 / 700 Output Total 1800 / 1800 Balance 360 / 360 -1100 / -1100 Weight 281 lb 15.539 oz 282 lb 10.122 oz Laboratory Results Laboratory Results - last 24 hr 10/11/21 10/12/21 10/12/21 20:24 06:28 06:28 WBC 4.88 RBC 4.09 Hgb 11.8 L Hct 36.3 MCV 88.8 MCH 28.9 MCHC 32.5 RDW Std Deviation 45.6 RDW Coeff of [place] 14.2 Plt Count 236 MPV 8.9 L Immature Gran % (Auto) 0.6 Neut % (Auto) 63.1 Lymph % (Auto) 19.3 [place] % (Auto) 13.5 Eos % (Auto) 2.9 Baso % (Auto) 0.6 Neut # (Auto) 3.08 Lymph # (Auto) 0.94 L [place] # (Auto) 0.66 Eos # (Auto) 0.14 Baso # (Auto) 0.03 Immature Gran # (Auto) 0.03 H Sodium 141 Potassium 3.4 L Chloride 107 Carbon Dioxide 28 Anion Gap 6 BUN 22 Creatinine 1.19 Est Cr Clr Drug Dosing 43.7 Est GFR ( Amer) 48.9 Est GFR (Non-Af Amer) 42.2 BUN/Creatinine Ratio 18.5 Glucose 102 H POC Glucose 106 H Calcium 8.3 L Diagnostic Findings Telemetry personally reviewed: NSR and sinus bradycardia in the 50s. No arrhythmia. Medications Administered Current Inpatient Medications Acetaminophen (Acetaminophen 325 Mg Tab) 650 mg PO Q4H PRN PRN Reason: Pain or Fever Stop: 11/09/21 17:38 Amlodipine Besylate (Amlodipine Besylate 5 Mg Tab) 10 mg PO DAILY [facility] Stop: 11/10/21 08:59 Last Admin: 10/12/21 08:27 Dose: 10 mg Atropine Sulfate (Atropine Sulfate 0.1 Mg/Ml 5ml Syr) 0.5 mg IV Q5M PRN PRN Reason: SYMPTOMATIC TONY <50 Stop: 11/09/21 19:26 Enoxaparin Sodium (Enoxaparin Inj 40 Mg/0.4 Ml Syr) 40 mg SQ Q24H [facility] Stop: 11/11/21 12:44 Furosemide (Furosemide 40 Mg/4 Ml Vial) 40 mg IV DAILY [facility] Stop: 11/11/21 08:59 Last Admin: 10/12/21 08:27 Dose: 40 mg Hydralazine HCl (Hydralazine Hcl 20 Mg/Ml Vial) 5 mg IV Q6H PRN PRN Reason: SBP >180 Stop: 11/09/21 17:59 Polyethylene Glycol (Polyethylene (Miralax) 17 Gm Pack) 17 gm PO DAILY PRN PRN Reason: Constipation Stop: 11/09/21 17:38 Potassium Chloride (Potassium Chloride Crtab 20 Meq Tabcr) 20 meq PO QAM [facility] Stop: 11/11/21 09:59 Last Admin: 10/12/21 10:49 Dose: 20 meq PG Care Time/CCT Total # of Minutes Spent Total Time Spent with Patient: Total time spent is greater than 50% in coordination of care (as documented) at patient's floor/unit and/or counseling patient: Coding Level of Care Code 74467 Subseq Hosp Care Lvl 3 Diagnoses Acute heart failure with preserved ejection fraction I50.31 Bradycardia R00.1 Benign essential hypertension I10
[2021-10-13 08:00] LABS: Basophils # (auto) 0.05 K/uL (0-0.2); Basophils % (auto) 1.1 %; Eosinophils # (auto) 0.15 K/uL (0-0.50); Eosinophils % (auto) 3.2 %; Hematocrit (blood only) 38.3 % (34.1-44.9); Hemoglobin 12.3 g/dl (12.0-16.0); Immature Granulocytes # (auto) 0.02 K/uL (0.00-0.02); Immature Granulocytes % (auto) 0.4 %; Lymphocytes # (auto) 0.91 K/uL (1.2-3.4); Lymphocytes % (auto) 19.4 %; Mean Corpuscular Hemoglobin 28.7 pg (25.0-34.0); Mean Corpuscular Hgb Conc 32.1 g/dL (32.0-36.0); Mean Corpuscular Volume 89.5 fL (80.0-100.0); Mean Platelet Volume 8.7 fL (9.4-12.3); Monocytes # (auto) 0.66 K/uL (0.24-0.82); Monocytes % (auto) 14.1 %; Neutrophils # (auto) 2.89 K/uL (1.4-6.5); Neutrophils % (auto) 61.8 %; Platelet Count 230 K/uL (130-400); RDW Coefficient of Variation 14.2 % (11.5-14.5); RDW Standard Deviation 45.8 fL (36.4-46.3); Red Blood Count 4.28 M/uL (3.93-5.22); White Blood Count 4.68 K/ul (4.8-10.8)
[2021-10-13] MEDS: POTASSIUM CHLORIDE CRTAB 20 MEQ TABCR PO SCH (08:26)
[2021-10-13] MEDS: FUROSEMIDE 40 MG/4 ML VIAL IV SCH (08:26)
[2021-10-13] MEDS: amLODIPine BESYLATE 5 MG TAB PO SCH (08:26)
[2021-10-13 08:41] LABS: BUN Creatinine Ratio 19.1 (10-20); Calcium 8.3 mg/dl (8.5-10.1); Creatinine Clr Calc Pharmacy 56.3 ml/min; Est GFR (African American) 69.5 ml/min; Est GFR (Non-African American) 59.9 ml/min; Potassium 3.4 mmol/L (3.5-5.1)
[2021-10-13] MEDS: TELMISARTAN 40 MG TAB PO SCH (09:12)
[2021-10-13] MEDS: ENOXAPARIN INJ 40 MG/0.4 ML SYR SQ SCH (12:13)
--- NOTE | 2021-10-13 12:28 | Hospitalist Progress Note ---
Date of Service October 13, 2021 Assessment & Plan (1) Bradycardia: Plan: HFpEF Clinically improving, legs slightly worse but oxygen requirements resolving today - Echo with grade II diastolic dysfunction, EF 55-60%. No wall motion abnormalities Creatinine remains at baseline, tolerating diuresis -Target output approximately 1 L daily strict I&O Inconsistent bed weights, standing weights only - Low sodium diet - Will have followup with CHF clinic Continue to wean oxygen, SPO2 goal 94%. Continue Lasix 40 mg today, pending PT/OT for dispo planning, likely ready this afternoon/tomorrow pending volume status Creatinine tolerating diuresis, improved and less than 1 today Weight 121.4, has fluctuated from prior bed weights. Standing weights only moving forward Symptomatic bradycardia --> Improved w/ BB hold No chest pain/chest pressure Presented to [place] with presyncope/orthostasis EKG in [place] sinus, resting rate in the 30s with minimal chronotropic response. No high-grade block Troponin [place] high-sensitivity 24. Repeat normal. Admit to PCU, hold metoprolol - Pt with HR improve to 50-60s with appropriate increase when walking to bathroom this AM. Suspect 2/2 BB. No further metoprolol. No indication for pacer at this time. HTN Telmisartan held for MIREILLE, MIREILLE resolved --> ARB resumed Amlodipine 10 mg daily, continue Metoprolol medically discontinued due to bradycardia Hydralazine every 6 hours IV for SBP greater than 180 while above antihypertensives held Blood pressure normotensive to slightly hypertensive. Continue to follow with above treatment, if needed can consider adjunct HCTZ MIREILLE, resolved Prior baseline less than 10/05 creatinine acutely elevated to 2.0. Improving but remains elevated in [place] at 1.6 - Normalized 10/11 after lasix -Continue to tolerate diuresis above with creatinine at baseline Overactive Bladder Continue oxybutynin Gout Continue febuxostat 80 mg daily - No hx of recent NSAID use, stopped celebrex. 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 Lovenox DVT PPx Diet: Heart healthy, low-sodium Disposition: PCU CODE STATUS:Full Code per pt (2) Lightheadedness: (3) Venous stasis ulcers: (4) Inflammatory arthritis: (5) Dyslipidemia: (6) Osteoporosis: (7) Tophaceous gout: (8) Benign essential hypertension: (9) Hyperactivity of bladder: (10) Hyperlipidemia: (11) Lumbar canal stenosis: (12) S/P colon resection: (13) Acute heart failure with preserved ejection fraction: Admission and Anticipated Discharge Date Admission Date: October 10, 2021 Subjective Seen at bedside this morning. She is sitting up next to the bed, comfortable. Reports she still has worsened swelling in her legs but notes this is worse after sitting for long period of time. Will elevate legs release 20 minutes 3 times daily. Creatinine 0.89, unmeasured void x1 yesterday but reports good output neutral net measured balance. Strict I's and O's moving forward. Is just weaned and breathing comfortably this morning on room air. PT/OT pending, has not yet seen. Remains clinically mildly hypervolemic, but improved oxygen requirements. No chest pain, chest pressure Review of Systems Review of Systems: All systems reviewed & are unremarkable except as noted in Subjective Physical Exam Physical Exam: General: A&Ox3. NAD. Cooperative. HEENT: Atraumatic, normocephalic. Vision/hearing intact. Pulm: HJR present, no crackles, moderate air movement. No rales. symmetrical chest rise. No increased work of breathing. No respiratory distress. Cardiac: REgular, bradycardic, +soft sm -rg. Radial pulses intact and symmetrical. Abdominal: Nontender, nondistended, soft. BS present. Ext: Bilateral lower edema, similar/slightly worsened to prior. +mild erythema and warmth of the lower extremities bilaterally without tenderness to soft touch/palpation, no change from prior and longstanding per pt. Results & Data Results & Data ([facility]) Vital Signs (Past 12 Hours) Vital Signs Temp Pulse Resp BP BP Pulse Ox O2 Del Method 10/13/21 11:27 36.7 C 87 18 139/62 98 Room Air 10/13/21 08:00 Room Air, Nasal Cannula 10/13/21 07:58 36.8 C 73 20 157/67 H 93 Room Air 10/13/21 03:41 36.5 C 72 18 108/65 91 Room Air O2 Flow Rate 10/13/21 11:27 10/13/21 08:00 1 10/13/21 07:58 10/13/21 03:41 PG Care Time/CCT Total # of Minutes Spent Total Time Spent with Patient: Total time spent is greater than 50% in coordination of care (as documented) at patient's floor/unit and/or counseling patient: Coding Level of Care Code 73956 Subseq Hosp Care Lvl 2 Diagnoses Bradycardia R00.1 Lightheadedness R42 Venous stasis ulcers I83.009; L97.909 Inflammatory arthritis M19.90 Dyslipidemia E78.5 Osteoporosis M81.0 Tophaceous gout [id number] Benign essential hypertension I10 Hyperactivity of bladder N31.8 Hyperlipidemia E78.5 Lumbar canal stenosis M48.061 S/P colon resection Z90.49 Acute heart failure with preserved ejection fraction I50.31
[2021-10-14 07:18] LABS: Basophils # (auto) 0.03 K/uL (0-0.2); Basophils % (auto) 0.7 %; Eosinophils # (auto) 0.12 K/uL (0-0.50); Eosinophils % (auto) 2.8 %; Hematocrit (blood only) 36.1 % (34.1-44.9); Hemoglobin 11.6 g/dl (12.0-16.0); Immature Granulocytes # (auto) 0.01 K/uL (0.00-0.02); Immature Granulocytes % (auto) 0.2 %; Lymphocytes # (auto) 0.89 K/uL (1.2-3.4); Lymphocytes % (auto) 20.9 %; Mean Corpuscular Hemoglobin 28.9 pg (25.0-34.0); Mean Corpuscular Hgb Conc 32.1 g/dL (32.0-36.0); Mean Corpuscular Volume 89.8 fL (80.0-100.0); Mean Platelet Volume 9.2 fL (9.4-12.3); Monocytes # (auto) 0.61 K/uL (0.24-0.82); Monocytes % (auto) 14.3 %; Neutrophils % (auto) 61.1 %; Platelet Count 182 K/uL (130-400); RDW Coefficient of Variation 14.2 % (11.5-14.5); RDW Standard Deviation 46.4 fL (36.4-46.3); Red Blood Count 4.02 M/uL (3.93-5.22); White Blood Count 4.26 K/ul (4.8-10.8)
[2021-10-14 07:42] LABS: Calcium 7.8 mg/dl (8.5-10.1); Creatinine Clr Calc Pharmacy 58.7 ml/min; Est GFR (African American) 69.5 ml/min; Est GFR (Non-African American) 59.9 ml/min
[2021-10-14] MEDS: amLODIPine BESYLATE 5 MG TAB PO SCH (08:13)
[2021-10-14] MEDS: TELMISARTAN 40 MG TAB PO SCH (08:13)
[2021-10-14] MEDS: FUROSEMIDE 40 MG/4 ML VIAL IV SCH (08:13)
[2021-10-14] MEDS ORDERED: POTASSIUM CHLORIDE CRTAB 20 MEQ TABCR PO SCH (09:00)
--- NOTE | 2021-10-14 11:40 | Discharge Summary ---
Date of Service October 14, 2021 Admission HPI Per Admitting Provider Mera is an 81-year-old female with a past medical history of venous stasis, inflammatory arthritis, hyperlipidemia, lumbar stenosis with chronic back pain, and colon resection due to high-grade adenoma who presented to [place] ER with symptomatic bradycardia and he was referred as a direct admit for pacer placement. At [place] evaluation Per signout patient had a high-sensitivity troponin of 24 with no chest pain or clinical signs of ACS and no EKG changes just of ischemia but with sinus bradycardia in the 30s without significant chronotropic response. No history of Lyme, no screening available although no heart block appreciated. Patient does have a history of metoprolol succinate daily use.No history of heart failure, no echo available for review. Fatigue an dleg swelling fo r'a long time' with many 'tired days' in the preceding few months but acute weakness and fatigue much worse x1 day. No chest pain or chest pressure. No fevers, chills, or sweats. No rashes. No tick bites/hx of lyme disease.Leg swelling improved with uniboots. Stopped lasix due to MIREILLE on Friday. No hx of pulmonary edema. Blood pressure 'ok, usually steady' Presyncope and dizziness without vertigo, no syncope. Medical History: Reviewed Medications: Reviewed. Took meds this AM including Metoprolol. Surgical History: Reviewed Allergies: Reviewed Social History: No tobacco product use, no alcohol use. No Med Marijuana use. Code Status: Full Code Principal Diagnosis AoCdHF Discharge Exam General: A&Ox3. NAD. Cooperative. HEENT: Atraumatic, normocephalic. Vision/hearing intact. Pulm: CTAB -wheezes/-rales/-crackles. moderate air movement. No rales. symmetrical chest rise. No increased work of breathing. No respiratory distress. Cardiac: RRR +soft sm -rg. Radial pulses intact and symmetrical. Abdominal: Nontender, nondistended, soft. BS present. Ext: Bilateral lower edema, improved from prior to prior. +mild erythema and warmth of the lower extremities bilaterally without tenderness to soft touch/palpation, no change from prior and longstanding per pt. Discharge Data Allergies Allergy/AdvReac Type Severity Reaction Status Date / Time lisinopril Allergy Intermediate cough Verified 10/05/21 13:50 allopurinol Allergy Mild ITCHY Verified 10/05/21 13:50 sertraline Allergy Unknown unknown Verified 10/05/21 13:50 diltiazem Allergy low heart Verified 10/05/21 13:50 rate Consultations 10/10/21 17:39 Consult Cardiology Routine Hospital Course (1) Bradycardia: Mera is an 81-year-old female with a history of lower extremity edema who presented as a transfer with concerns for symptomatic bradycardia. Had reportedly had her beta-felicia held, and had symptoms of shortness of breath and presyncope without chronotropic response. Patient did report that she had been taking her metoprolol, this was held with improvement in her heart rate and appropriate chronotropic response. Echo did show grade 2 diastolic dysfunction with preserved EF, no wall motion abnormalities. She did have evidence of fluid overload, she was treated with diuresis and clinically improved and returned to room air after having a low oxygen requirement of up to 2 L. She was discharged home to follow-up with the heart failure clinic, she reports she felt she was at her normal level of health breathing was normal for her at time of discharge To Do As Outpt: 1. Continue lasix 40 mg p.o. BID 2. Followup with CHF clinic 3. Outpatient routine PCP followup 4. Stop all BB/Metoprolol HFpEF Clinically improving, legs slightly worse but oxygen requirements resolving today - Echo with grade II diastolic dysfunction, EF 55-60%. No wall motion abnormalities Creatinine remains at baseline, tolerating diuresis -Target output approximately 1 L daily strict I&O Inconsistent bed weights, standing weights only - Low sodium diet - Will have followup with CHF clinic Continue to wean oxygen, SPO2 goal 94%. Tolerated Lasix IV 40 mg with brisk diuresis through admission. There was some delay in logging TISH's/vitals, on discussion with nursing and patient did have at least 1 L of output with each Lasix dose and clinically improved. Was ambulating on room air entire morning of discharge without shortness of breath. Symptomatic bradycardia --> Improved w/ BB hold No chest pain/chest pressure Presented to [place] with presyncope/orthostasis EKG in [place] sinus, resting rate in the 30s with minimal chronotropic response. No high-grade block Troponin [place] high-sensitivity 24. Repeat normal. Admit to PCU, hold metoprolol - Pt with HR improve to 50-60s with appropriate increase when walking. Likely due to beta-felicia, metoprolol discontinued permanently HTN Telmisartan held for MIREILLE, MIREILLE resolved --> ARB resumed Amlodipine 10 mg daily, continue Metoprolol medically discontinued due to bradycardia Hydralazine every 6 hours IV for SBP greater than 180 while above ant ihypertensives held Blood pressure normotensive to slightly hypertensive. Continue to follow with above treatment, if needed can consider adjunct HCTZ MIREILLE, resolved Prior baseline less than 1 10/05 creatinine acutely elevated to 2.0. Improving but remains elevated in [place] at 1.6 - Normalized 10/11 after lasix -Continue to tolerate diuresis above with creatinine at baseline Overactive Bladder Continue oxybutynin Gout Continue febuxostat 80 mg daily - No hx of recent NSAID use, stopped celebrex. 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 Lovenox DVT PPx Diet: Heart healthy, low-sodium Disposition: PCU CODE STATUS:Full Code per pt (2) Lightheadedness: (3) Venous stasis ulcers: (4) Inflammatory arthritis: (5) Dyslipidemia: (6) Osteoporosis: (7) Tophaceous gout: (8) Benign essential hypertension: (9) Hyperactivity of bladder: (10) Hyperlipidemia: (11) Lumbar canal stenosis: (12) S/P colon resection: (13) Acute heart failure with preserved ejection fraction: Total Time Total Time Spent Total Time Spent (In Minutes): Time spend day of discharge 35 minutes including direct patient care, documentation, review of labs and images, and coordination of care. Discharge Plan Discharge Items Patient Disposition: Home - Self-Care Reason For Visit: BRADYCARDIC-NEEDS PACEMAKER PLACED Discharge Diagnosis: Acute diastolic heart failure, bradycardia 2/2 metoprolol Activity: Resume your previous activity Non-emergency contact: Primary Care Provider and Service Operations Manager Call non-emergency contact if: you have any medication questions and your symptoms worsen Follow-up/Referrals: Cameron Delacruz MD [Primary Care Provider] - Ellen Osullivan PA-C [Physician Fabric Worker Supervisor] - 10/18/21 2:00 pm (Congestive Heart Failure Program Appointment Information Early follow up is essential to managing your heart failure. An appointment has been scheduled for you with the [facility] Program within 7 days of discharge. Anticipate this visit to be 30-60 minutes long. Please expect a capture manager phone call from one of our nurses approximately 48 hours from discharge. They will also be placing an order for lab work to be completed 1-2 days prior to your heart failure follow up appointment. Please be sure to have this done so we can go over the results when you come in. Office Location The cardiology office building is located in front of the hospital at [address] Bring the following with you to your follow-up doctor appointments: Please bring your daily weight log any discharge paperwork all of your medication bottles with you to this visit. ) Diet: Low Sodium (2gm) Addtl Attending Provider Instructions: You are seen in the hospital for a slow heart rate which is likely being caused by your metoprolol. This has been stopped, please do not take metoprolol or other beta-blockers in the future. You were noted to have increased fluid, and an ultrasound of your heart showed evidence of congestive heart failure with preserved pumping function. You were treated with Lasix, and clinically improved. You are on room air at time of discharge. Follow-up is being scheduled for you with cardiology and the heart failure clinic as noted above. When you return home please continue to take Lasix 40 mg by mouth twice daily. You will have follow-up at the heart failure clinic and may have dose adjustments based on your progression. A follow-up appointment is being made with your primary care provider as above, he should be seen within approximately 1 week. Please maintain a low-salt diet, excess salt will cause you to gain fluid. A diet less than 2 g of sodium chloride daily is recommended. If you develop any new or worsening symptoms including fever, chills, sweats, chest pain, chest pressure, difficulty breathing, uncontrolled nausea/vomiting, rash, wheezing, passing out or nearly passing out, bleeding, black/bloody bowel movements, or other new or concerning symptoms please call your primary care physician, or call 911 for re-evaluation in the emergency department if you are very concerned. Addtl Quality Assurance Consultant Provider Instructions: Call your Primary Care doctor if any of the following symptoms or problems start or get worse: * Shortness of breath or difficulty breathing * Wake up at night short of breath * Chest pain * Cough * Swelling of your hands, feet, or legs * More fatigued or tired with your normal activity * Palpitations - sudden fast heart beats WEIGHT * Weigh yourself every morning after using the bathroom. * Use the same scale. * Wear the same amount of clothing. * Write your weight down on a chart. * Call your Primary Care doctor if you gain more than 2-3 pounds in 1-2 days. MEDICATIONS * Use this discharge instruction sheet for medication instructions. * Take your medications at the time your doctor ordered. * Do not skip a dose of your medicines. * If you miss a dose of medicine, take it as soon as possible, but DO NOT DOUBLE A DOSE. * Read your medicine information when you get home. * Know all of the side effects of your medicine. If in doubt, ask your pharmacist * Call your Primary Care doctor's office if you have any side effects. * Be sure all of your doctors know what medicine and herbs you take (including cold, flu, and herbal medicine). Take the following with you to your follow-up doctor appointments: * Weight Chart * Medication List * List of questions Do not drink excessive alcohol, beer or wine. Pending Studies at Discharge: No Stand-Alone Forms: [facility], Smoking Cessation Medications and DC Order Prescriptions: Continued telmisartan 80 mg tablet 80 mg PO DAILY Qty: 90 3RF alendronate 70 mg tablet 70 mg PO WEEKLY Qty: 12 3RF furosemide 40 mg tablet 80 mg PO BID Qty: 120 11RF amlodipine 10 mg tablet 10 mg PO DAILY Qty: 90 3RF oxybutynin chloride 5 mg tablet 5 mg PO DAILY Qty: 90 3RF febuxostat 80 mg tablet 80 mg PO DAILY Qty: 30 5RF potassium chloride 20 mEq tablet extended release 20 meq PO TID Qty: 270 3RF mecobalamin (vitamin B12) 1,000 mcg tablet,disintegrating 1,000 mcg sublingual DAILY Qty: 30 0RF Rx Instructions: place tablet under tongue and allow to dissolve for at least30 secs before swallowing cholecalciferol (vitamin D3) 1,000 unit capsule 1,000 units PO DAILY hydroxyzine HCl 25 mg tablet 25 mg PO .1-2 at HS PRN (Reason: itching) Qty: 60 5RF (DME) parafin bath Qty: 1 0RF Rx Instructions: As directed tramadol 50 mg tablet See Rx Instructions PO Q8H MDD 6 PRN (Reason: pain) Qty: 180 0RF Dose Instruction: 1-2 tabs PO Q8H PRN; Rx Instructions: 1-2 tabs PO Q8H PRN; nystatin 100,000 unit/gram powder 1 applic topical BID PRN (Reason: rash) Qty: 120 5RF Discontinued metoprolol succinate 100 mg tablet extended release 24 hr See Rx Instructions PO .COMPLEX Qty: 135 3RF Dose Instruction: 1 tab in the morning and 1/2 tab in the evening PO ; Rx Instructions: 1 tab in the morning and 1/2 tab in the evening PO ; Discharge Orders: Discharge Order (Routine); Ordered 10/14/21 Ordered By: Alex Santana Admission Data Admit Date/Time: 10/10/21 17:40 Attending Provider: Alex Santana Admit Provider: Alex Santana Primary Care Provider: Cameron Delacruz Other Providers: Mak Boyer Coding Level of Care Code D/Carla DAY MANAGEMENT >30 MINS Diagnoses Bradycardia R00.1 Lightheadedness R42 Venous stasis ulcers I83.009; L97.909 Inflammatory arthritis M19.90 Dyslipidemia E78.5 Osteoporosis M81.0 Tophaceous gout [id number].[id number] Benign essential hypertension I10 Hyperactivity of bladder N31.8 Hyperlipidemia E78.5 Lumbar canal stenosis M48.061 S/P colon resection Z90.49 Acute heart failure with preserved ejection fraction I50.31
== END 2021-10-14 13:23 | disposition home health service (06) | DRG 308 ==
LOC: 2S 17:40